=== PATIENT | female | born 1930 | race Caucasian/White ===

== ENCOUNTER 2018-03-21 16:37 | Emergency (ER) | payer MEDICARE, MEDICAID, OTHER ==
[2018-03-21 19:30] LABS: Urine Appearance Cloudy; Urine Blood Negative (Negative); Urine Color Yellow; Urine Ketones Negative (Negative); Urine Protein Negative (Negative); Urine Red Blood Cell Trace(0-2/hpf) (Absent); Urine Urobilinogen Negative (Negative); Urine White Blood Cell 2+(11-20/hpf) (Absent)
--- NOTE | 2018-03-21 19:33 | ED ---
Respiratory - HPI Summary HPI Summary: This patient is an 87 year old F presenting to [facility] with a chief complaint of cough since 2 days ago. The patient finished her last course of chemotherapy on 03/05. The patient rates the pain 0/10 in severity. Symptoms aggravated by nothing. Symptoms alleviated by nothing. Patient reports fatigue, decreased appetite, and body aches. Patient says her temperature typically runs low and she notes a fever. Patient denies abdominal pain, abnormal bowel movements, dysuria, rash, and pruritus. Patient has ovarian cancer and has PMHx of DVT in her right leg. The patient takes Enoxaparin. - History of Current Complaint Chief Complaint: EDGeneral Stated Complaint: COUGH/BODY ACHES Time Seen by Provider: 03/21/18 19:20 Hx Obtained From: Patient Onset/Duration: Gradual Onset, Lasting Days - 2 days, Still Present Timing: Intermittent Episodes Lasting: Current Severity: None Pain Intensity: 0 Character: Cough (Nonproductive) Aggravating Factor(s): Nothing Alleviating Factor(s): Nothing Associated Signs and Symptoms: Fever - Allergy/Home Medications Allergies/Adverse Reactions: Allergies Allergy/AdvReac Type Severity Reaction Status Date / Time exenatide AdvReac Mild Nausea And Verified 10/01/17 11:03 Vomiting liraglutide AdvReac Mild Nausea And Verified 10/01/17 11:03 Vomiting metformin AdvReac Mild Nausea And Verified 10/01/17 11:03 Vomiting sitagliptin AdvReac Mild Nausea And Verified 10/01/17 11:03 Vomiting PMH/Surg Hx/FS Hx/Imm Hx Endocrine/Hematology History: Reports: Hx Diabetes - NO MEDS, Hx Thyroid Disease - hypothy Denies: Hx Systemic Lupus Erythematosus Cardiovascular History: Reports: Hx Deep Vein Thrombosis, Hx Hypertension - WELL CONTROLLED Denies: Hx Pacemaker/ICD Respiratory History: Reports: Hx Pneumonia GI History: Reports: Hx Gastrointestinal Bleed - Admission Dx History: Reports: Hx Acute Renal Failure Denies: Hx Dialysis, Hx Renal Disease Musculoskeletal History: Reports: Hx Arthritis - top of left foot, HANDS, Hx Back Problems - pinched nerve r/t 5 ruptured discs in 06/04, healed, Hx Osteoporosis Denies: Hx Rheumatoid Arthritis Sensory History: Reports: Hx Cataracts, Hx 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 OVARIAN Date and Location of Last Treatment: Chemotherapy 03/05/18 Hx Chemotherapy: Yes - OVARIAN Hx Radiation Therapy: No - Surgical History Surgery Procedure, Year, and Place: L MASTECTOMY WITH LYMPH NODE DISSECTION 1978. APPENDECTOMY WITH LEFT OOPHERECTOMY 1945. HYSTERECTOMY 1964. BILAT CATARACTS 05/2015 [facility]. TONSILLECTOMY A CHILD. RIGHT OOPHERECTOMY 2014 [place]. [place] PLACEMENT Hx Anesthesia Reactions: No Infectious Disease History: No Infectious Disease History: Denies: Traveled Outside the [place] in Last 30 Days - Family History Known Family History: Positive: None - patient denies relevant FHx - Social History Alcohol Use: None Substance Use Type: Reports: None Smoking Status (MU): Never Smoked Tobacco Review of Systems Positive: Fever, Fatigue Negative: Epistaxis Positive: Cough Negative: Abdominal Pain Negative: dysuria Negative: Rash All Other Systems Reviewed And Are Negative: Yes Physical Exam - Summary Physical Exam Summary: Appearance: Well-appearing, Well-nourished, lying in bed comfortably Skin: Warm, dry, no obvious rash Eyes: sclera anicteric, no conjunctival pallor ENT: mucous membranes moist, pharynx appears normal Neck: Supple, nontender Respiratory: Clear to auscultation, no signs of respiratory distress Cardiovascular: Normal S1, S2. No murmurs. Normal distal pulses in tibial and radial bilaterally. Abdomen: Soft, nontender, normal active bowel sounds present Musculoskeletal: Normal, Strength/ROM Intact Neurological: A&Ox3, awake and alert, mentation is normal, speech is fluent and appropriate Psychiatric: affect is normal, does not appear anxious or depressed Triage Information Reviewed: Yes Vital Signs On Initial Exam: Initial Vitals Temp Pulse Resp BP Pulse Ox 99.0 F 90 18 128/55 97 03/21/18 16:49 03/21/18 16:49 03/21/18 16:49 03/21/18 16:49 03/21/18 16:49 Vital Signs Reviewed: Yes Diagnostics - Vital Signs Vital Signs Temp Pulse Resp BP Pulse Ox 03/21/18 16:49 99.0 F 90 18 128/55 97 - Laboratory Result Diagrams: 03/21/18 19:37 03/21/18 19:37 Lab Statement: Any lab studies that have been ordered have been reviewed, and results considered in the medical decision making process. - Radiology CXR Xray Interpretation: No Acute Changes - Impression: no acute disease Radiology Interpretation Completed By: ED Physician Disposition - Diagnoses Provider Diagnoses: UTI (urinary tract infection), Anemia Discharge - Sign-Out/Discharge Documenting (check all that apply): Patient Departure - Discharge Plan Condition: Good Disposition: HOME Prescriptions: cephALEXin [Keflex] 500 mg PO QID #28 capsule Patient Education Materials: Urinary Tract Infection in Women (ED) Referrals: Nancy Rodriguez MD [Primary Care Provider] - Additional Instructions: You are anemic, presumably from the chemotherapy, but not so much that you need a transfusion right now. However, this can make you fatigued. The only other finding on the tests was the urinalysis showed signs of a urinary tract infection, which in women your age can cause systemic symptoms such as fatigue and confusion. The antibiotic prescribed should take care of this, but if you are not better by the end of the weekend, or doing worse sooner, we should see you back here. - Billing Disposition and Condition Condition: GOOD Disposition: Home - Attestation Statements Document Initiated by Felipe: Yes Documenting Scribe: Bettye Johnson Provider For Whom Felipe is Documenting (Include Credential): Rolando Raza MD Scribe Attestation: Bettye Bruner, scribed for Rolando Raza MD on 03/22/18 at 0054. Scribe Documentation Reviewed: Yes Provider Attestation: The documentation as recorded by the sharifibe, Bettye Johnson accurately reflects the service I personally performed and the decisions made by me, Rolando Raza MD
[2018-03-21 19:56] LABS: Hematocrit 24 % (35-47); Hemoglobin 8.4 g/dl (12.0-16.0); Mean Corpuscular HGB Conc 35 g/dl (31-36); Mean Corpuscular Hemoglobin 38 pg (27-31); Mean Corpuscular Volume 107 fL (80-97); Mean Platelet Volume 6.9 um3 (7.4-10.4); Platelet Count 153 10^3/ul (150-450); Red Blood Count 2.23 10^6/ul (4.00-5.40); Red Cell Distribution Width 23 % (10.5-15); White Blood Count 3.1 10^3/ul (3.5-10.8)
[2018-03-21 20:13] LABS: EGFR Non-African American 30.9 (>60)
[2018-03-21] MEDS ORDERED: Cephalexin CAP* 500 MG PO ONE (20:33)
[2018-03-21 20:36] LABS: ABS Basophils 0 10^3/ul (0-0.2); ABS Eosinophils 0.1 10^3/ul (0-0.6); ABS Lymphocytes 0.2 10^3/ul (1.0-4.8); ABS Monocytes 0.3 10^3/ul (0-0.8); ABS Neutrophils 2.5 10^3/ul (1.5-7.7); ABS Nucleated RBC 0 10^3/ul; Eosinophil % 1.8 % (0-6); Lymphocyte % 6.2 % (25-47); Nucleated Red Blood Cells % 0
[2018-03-21 21:34] VITALS: BP 115/63
--- NOTE | 2018-03-22 09:11 | RAD ---
INDICATION: Cough for one week. Slight fever. Recent chemotherapy for ovarian carcinoma. COMPARISON: March 17, [address] April 30, [address] TECHNIQUE: Dual energy PA and routine lateral views of the chest were obtained. REPORT: Mild prominence of interstitial markings without significant interval change compared with the prior CT. No superimposed alveolar infiltrate, pleural effusion, or pneumothorax. Tip of RIGHT chest port at level of RIGHT atrium. Upper normal heart size. Unremarkable central pulmonary vasculature and mediastinal contours. Negative for free air beneath the diaphragm. IMPRESSION: #. Stigmata of probable chronic obstructive pulmonary disease. #. No acute cardiopulmonary process evident. R0
== END 2018-03-21 21:30 | disposition home or self-care (01) ==
LOC: ED 16:37
DX: N39.0 Urinary tract infection, site not specified (principal); D64.9 Anemia, unspecified; R05 Cough; E11.9 Type 2 diabetes mellitus without complications; R50.9 Fever, unspecified; R53.83 Other fatigue; I10 Essential (primary) hypertension; Z86.718 Personal history of other venous thrombosis and embolism
CPT/HCPCS: 36415; 71046; 80053; 81003; 81015; 83605; 85025; 87086; 99282; A9270-GY; J1642

== ENCOUNTER 2018-12-24 16:47 | Inpatient (IN) | payer MEDICARE, OTHER ==
[2018-12-24] MEDS ORDERED: Prochlorperazine TAB* 10 MG PO PRN (17:13)
[2018-12-24] MEDS ORDERED: Acetaminophen TAB* 325 MG PO PRN (17:13)
[2018-12-24] MEDS ORDERED: Ondansetron TAB* 4 MG PO PRN (17:13)
[2018-12-24] MEDS ORDERED: Heparin DRIP 25,000 UNITS(*) 25,000 UNITS/500 ML BAG IV SCH (17:15)
[2018-12-24] MEDS ORDERED: Warfarin TAB(*) 5 MG PO SCH (18:45)
[2018-12-24] MEDS: rOPINIRole TAB* 1 MG PO SCH ×2 (18:46→23:43)
[2018-12-24] MEDS: Magnesium Oxide TAB* 400 MG PO SCH (18:47)
[2018-12-24] MEDS: Pantoprazole TAB * 40 MG TAB PO SCH (18:47)
[2018-12-24] MEDS: Atorvastatin* 20 MG TAB PO SCH (18:50)
[2018-12-24] MEDS ORDERED: Heparin VIAL(*) 5000 UNITS/ML VIAL (FIVE THOUSAND) IV PRN (19:26)
[2018-12-24] MEDS: Cetirizine* 10 MG TAB PO SCH (21:06)
[2018-12-24 21:20] LABS: Hematocrit 27 % (35-47); Hemoglobin 9.2 g/dL (12.0-16.0); Mean Corpuscular HGB Conc 34 g/dL (31-36); Mean Corpuscular Hemoglobin 37 pg (27-31); Mean Corpuscular Volume 107 fL (80-97); Mean Platelet Volume 8.5 fL (7.4-10.4); Platelet Count 171 10^3/uL (150-450); Red Blood Count 2.53 10^6 /uL (3.70-4.87); Red Cell Distribution Width 21 % (10.5-15); White Blood Count 3.6 10^3/uL (3.5-10.8)
[2018-12-24] MEDS: Heparin DRIP 25,000 UNITS(*) 25,000 UNITS/500 ML BAG IV SCH (21:20)
[2018-12-24 21:34] LABS: EGFR African American 46.2 (>60); EGFR Non-African American 38.2 (>60)
[2018-12-24 21:46] LABS: ABS Lymphocytes 0.1 10^3/ul (1.0-4.8); ABS Monocytes 0.2 10^3/ul (0-0.8); ABS Neutrophils 3.3 10^3/ul (1.5-7.7); Lymphocyte % 3.1 %
[2018-12-25] MEDS: Levothyroxine TAB* 88 MCG TAB PO SCH (05:15)
[2018-12-25 05:35] LABS: ABS Lymphocytes 0.2 10^3/ul (1.0-4.8); ABS Monocytes 0.5 10^3/ul (0-0.8); Eosinophil % 0.4 %; Hematocrit 24 % (35-47); Hemoglobin 8.1 g/dL (12.0-16.0); Lymphocyte % 4.9 %; Mean Corpuscular HGB Conc 34 g/dL (31-36); Mean Corpuscular Hemoglobin 37 pg (27-31); Mean Corpuscular Volume 107 fL (80-97); Mean Platelet Volume 8.1 fL (7.4-10.4); Nucleated Red Blood Cells % 0.1; Platelet Count 140 10^3/uL (150-450); Red Blood Count 2.21 10^6 /uL (3.70-4.87); Red Cell Distribution Width 20 % (10.5-15); White Blood Count 3.8 10^3/uL (3.5-10.8)
[2018-12-25 05:57] LABS: Albumin 3.2 g/dL (3.2-5.2); Albumin/Globulin Ratio 1.4 (1-3); BUN/Creatinine Ratio 19.8 (8-20); Calcium 8.9 mg/dL (8.6-10.3); EGFR African American 46.6 (>60); EGFR Non-African American 38.5 (>60); Globulin 2.3 g/dL (2-4); Potassium 4.8 mmol/L (3.5-5.0); Total Bilirubin 0.4 mg/dL (0.2-1.0); Total Protein 5.5 g/dL (6.4-8.9)
--- NOTE | 2018-12-25 09:14 | PN ---
Progress Note - Progress Note Date of Service: 12/25/18 SOAP: Subjective: leg feels better but has been resting more/elevating so less swollen. still runner around the ankle. slept very well last night. no nausea/vomiting after chemo yesterday. Objective: Vital Signs Temp Pulse Resp BP Pulse Ox 98.4 F 70 20 112/36 95 12/25/18 03:29 12/25/18 03:29 12/25/18 03:29 12/25/18 03:29 12/25/18 03:29 sitting up in nad perr eomi op moist CTA bl s1 s2 nl soft nt +Bs 1+ LE edema RLE, minimal erythema, no warmth A+O x 3, nonfocal neurological exam Laboratory Results - last 24 hr 12/24/18 12/24/18 12/24/18 16:57 20:51 20:51 WBC 3.6 RBC 2.53 L Hgb 9.2 L Hct 27 L MCV 107 H MCH 37 H MCHC 34 RDW 21 H Plt Count 171 MPV 8.5 Neut % (Auto) 90.7 Lymph % (Auto) 3.1 [place] % (Auto) 6.1 Eos % (Auto) 0.0 Baso % (Auto) 0.1 Absolute Neuts (auto) 3.3 Absolute Lymphs (auto) 0.1 L Absolute Monos (auto) 0.2 Absolute Eos (auto) 0.0 Absolute Basos (auto) 0.0 Absolute Nucleated RBC 0.0 Nucleated RBC % 0.0 APTT 39.8 H Sodium Potassium Chloride Carbon Dioxide Anion Gap BUN 26 H Creatinine 1.32 H Est GFR ( Amer) 46.2 Est GFR (Non-Af Amer) 38.2 BUN/Creatinine Ratio Glucose Calcium Total Bilirubin AST ALT Alkaline Phosphatase Total Protein Albumin Globulin Albumin/Globulin Ratio 12/25/18 12/25/18 12/25/18 03:30 05:19 05:19 WBC 3.8 RBC 2.21 L Hgb 8.1 L Hct 24 L MCV 107 H MCH 37 H MCHC 34 RDW 20 H Plt Count 140 L MPV 8.1 Neut % (Auto) 81.2 Lymph % (Auto) 4.9 [place] % (Auto) 13.2 Eos % (Auto) 0.4 Baso % (Auto) 0.3 Absolute Neuts (auto) 3.0 Absolute Lymphs (auto) 0.2 L Absolute Monos (auto) 0.5 Absolute Eos (auto) 0.0 Absolute Basos (auto) 0.0 Absolute Nucleated RBC 0.0 Nucleated RBC % 0.1 APTT > 212.0 H* Sodium 134 L Potassium 4.8 Chloride 103 Carbon Dioxide 24 Anion Gap 7 BUN 26 H Creatinine 1.31 H Est GFR ( Amer) 46.6 Est GFR (Non-Af Amer) 38.5 BUN/Creatinine Ratio 19.8 Glucose 157 H Calcium 8.9 Total Bilirubin 0.40 AST 15 ALT 23 Alkaline Phosphatase 61 Total Protein 5.5 L Albumin 3.2 Globulin 2.3 Albumin/Globulin Ratio 1.4 12/25/18 12/25/18 05:19 06:01 WBC RBC Hgb Hct MCV MCH MCHC RDW Plt Count MPV Neut % (Auto) Lymph % (Auto) [place] % (Auto) Eos % (Auto) Baso % (Auto) Absolute Neuts (auto) Absolute Lymphs (auto) Absolute Monos (auto) Absolute Eos (auto) Absolute Basos (auto) Absolute Nucleated RBC Nucleated RBC % APTT > 211.0 H* 142.8 H* Sodium Potassium Chloride Carbon Dioxide Anion Gap BUN Creatinine Est GFR ( Amer) Est GFR (Non-Af Amer) BUN/Creatinine Ratio Glucose Calcium Total Bilirubin AST ALT Alkaline Phosphatase Total Protein Albumin Globulin Albumin/Globulin Ratio Acetaminophen (Tylenol Tab*) 650 mg PO Q4H PRN PRN Reason: FEVER/PAIN Atorvastatin Calcium (Lipitor*) 20 mg PO QPM [facility] Last Admin: 12/24/18 18:50 Dose: 20 mg Cetirizine HCl (Zyrtec*) 10 mg PO BEDTIME [facility]; Protocol Last Admin: 12/24/18 21:06 Dose: 10 mg Heparin Sodium (Porcine) (Heparin Vial(*)) 0 units IV .FOR BOLUSES PRN PRN Reason: HEPARIN DRIP BOLUSES Last Admin: 12/24/18 21:20 Dose: 4,275 units Heparin Sodium/Dextrose (Heparin Drip 25,000 Units(*)) 25,000 units in 500 mls @ 0 mls/hr IV PER RATE [facility]; Protocol Last Admin: 12/24/18 21:20 Dose: 21 mls/hr Levothyroxine Sodium (Synthroid Tab*) 88 mcg PO DAILY@0600 [facility] Last Admin: 12/25/18 05:15 Dose: 88 mcg Lisinopril (Prinivil Tab*) 20 mg PO DAILY [facility] Magnesium Oxide (Magox 400 Tab*) 400 mg PO QPM [facility] Last Admin: 12/24/18 18:47 Dose: 400 mg Multivitamins/Minerals (Theragran/Minerals Tab*) 1 tab PO DAILY [facility] Ondansetron HCl (Zofran Tab*) 4 mg PO Q6H PRN PRN Reason: NAUSEA Pantoprazole Sodium (Protonix Tab*) 40 mg PO QPM [facility] Last Admin: 12/24/18 18:47 Dose: 40 mg Prochlorperazine (Compazine Tab*) 10 mg PO Q6H PRN PRN Reason: NAUSEA Ropinirole HCl (Requip Tab*) 3 mg PO 0000,1800 [facility] Last Admin: 12/24/18 23:43 Dose: 3 mg Warfarin Sodium (Coumadin Tab(*)) 3 mg PO DAILY@1700 [facility]; Protocol Assessment: 88 yo F on palliative carbo/gemcitabine for 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 Plan: -cont heparin drip -coumadin bridge, given age will decrease dose to 3 mg daily, will need at least 5 dys heparin AND therapeutic INR -check INR on Saturday (day 4) -coumadin teaching cont home meds
[2018-12-25] MEDS: Lisinopril TAB* 10 MG PO SCH (10:38)
[2018-12-25] MEDS: Multivitamins/Minerals TAB PO SCH (10:38)
[2018-12-25] MEDS: rOPINIRole TAB* 1 MG PO SCH ×2 (17:27→23:44)
[2018-12-25] MEDS: Magnesium Oxide TAB* 400 MG PO SCH (17:27)
[2018-12-25] MEDS: Atorvastatin* 20 MG TAB PO SCH (17:27)
[2018-12-25] MEDS: Pantoprazole TAB * 40 MG TAB PO SCH (17:27)
[2018-12-25] MEDS: Warfarin TAB(*) 3 MG PO SCH (17:27)
[2018-12-25] MEDS: Cetirizine* 10 MG TAB PO SCH (20:24)
[2018-12-26] MEDS: Levothyroxine TAB* 88 MCG TAB PO SCH (05:35)
[2018-12-26] MEDS: Heparin DRIP 25,000 UNITS(*) 25,000 UNITS/500 ML BAG IV SCH (05:39)
[2018-12-26 08:22] LABS: Activated Partial Thrombo Time 58.9 seconds (26.0-38.0)
[2018-12-26 08:26] LABS: EGFR African American 46.6 (>60); EGFR Non-African American 38.5 (>60)
--- NOTE | 2018-12-26 10:07 | PN ---
Progress Note - Progress Note Date of Service: 12/26/18 SOAP: Subjective: [Doing well. No new complaints.] Objective: [ Laboratory Results - last 24 hr 12/25/18 12/25/18 12/26/18 10:02 19:00 01:45 APTT 108.5 H* 83.4 H 68.0 H BUN Creatinine Est GFR ( Amer) Est GFR (Non-Af Amer) 12/26/18 12/26/18 07:28 07:33 APTT 58.9 H BUN 28 H Creatinine 1.31 H Est GFR ( Amer) 46.6 Est GFR (Non-Af Amer) 38.5 Acetaminophen (Tylenol Tab*) 650 mg PO Q4H PRN PRN Reason: FEVER/PAIN Atorvastatin Calcium (Lipitor*) 20 mg PO QPM [facility] Last Admin: 12/25/18 17:27 Dose: 20 mg Cetirizine HCl (Zyrtec*) 10 mg PO BEDTIME [facility]; Protocol Last Admin: 12/25/18 20:24 Dose: 10 mg Heparin Sodium (Porcine) (Heparin Vial(*)) 0 units IV .FOR BOLUSES PRN PRN Reason: HEPARIN DRIP BOLUSES Last Admin: 12/24/18 21:20 Dose: 4,275 units Heparin Sodium/Dextrose (Heparin Drip 25,000 Units(*)) 25,000 units in 500 mls @ 0 mls/hr IV PER RATE [facility]; Protocol Last Admin: 12/26/18 05:39 Dose: 13 mls/hr Levothyroxine Sodium (Synthroid Tab*) 88 mcg PO DAILY@0600 [facility] Last Admin: 12/26/18 05:35 Dose: 88 mcg Lisinopril (Prinivil Tab*) 20 mg PO DAILY [facility] Last Admin: 12/25/18 10:38 Dose: 20 mg Magnesium Oxide (Magox 400 Tab*) 400 mg PO QPM [facility] Last Admin: 12/25/18 17:27 Dose: 400 mg Multivitamins/Minerals (Theragran/Minerals Tab*) 1 tab PO DAILY [facility] Last Admin: 12/25/18 10:38 Dose: 1 tab Ondansetron HCl (Zofran Tab*) 4 mg PO Q6H PRN PRN Reason: NAUSEA Pantoprazole Sodium (Protonix Tab*) 40 mg PO QPM [facility] Last Admin: 12/25/18 17:27 Dose: 40 mg Prochlorperazine (Compazine Tab*) 10 mg PO Q6H PRN PRN Reason: NAUSEA Ropinirole HCl (Requip Tab*) 3 mg PO 0000,1800 [facility] Last Admin: 12/25/18 23:44 Dose: 3 mg Warfarin Sodium (Coumadin Tab(*)) 3 mg PO DAILY@1700 [facility]; Protocol Last Admin: 12/25/18 17:27 Dose: 3 mg Vital Signs: Temp Pulse Resp BP Pulse Ox 97.7 F 74 20 108/35 94 12/26/18 03:23 12/26/18 03:23 12/26/18 03:23 12/26/18 03:23 12/26/18 03:23 Exam: Gen: Well appearing 88 yo female in NAD HEENT: MMM CV: RRR, no m/r/g Resp: CTA, no w/c/r Abd: soft, nonTTP Ext: trace RLE with TTP over the calf Skin: no rashes] [Assessment: 88 yo F on palliative carbo/gemcitabine for recurrent ovarian cancer (C3dy3) with a history of recurrent DVT/PE, previously failed eliquis now with progression of clot on lovenox 100 mg daily necessitating admission for IV heparin transitioning to coumadin (no arixtra given creatinine clearance <30). Plan: -cont heparin drip -coumadin bridge, 3 mg daily, will need at least 5 dys heparin AND therapeutic INR -check INR daily -coumadin teaching Dispo: cont heparin drip, dc home when above criteria met
[2018-12-26] MEDS: Multivitamins/Minerals TAB PO SCH (10:12)
[2018-12-26] MEDS ORDERED: Polyethylene Glycol 3350* 17 GM PACKET PO ONE (10:18)
[2018-12-26] MEDS: Lisinopril TAB* 10 MG PO SCH (10:30)
[2018-12-26] MEDS: Docusate CAP* 100 MG PO SCH ×2 (10:35→19:13)
[2018-12-26 11:25] LABS: INR 1.02 (0.82-1.09)
[2018-12-26] MEDS: Warfarin TAB(*) 3 MG PO SCH (17:27)
[2018-12-26] MEDS: Pantoprazole TAB * 40 MG TAB PO SCH (17:29)
[2018-12-26] MEDS: Magnesium Oxide TAB* 400 MG PO SCH (17:29)
[2018-12-26] MEDS: rOPINIRole TAB* 1 MG PO SCH ×2 (17:29→23:35)
[2018-12-26] MEDS: Atorvastatin* 20 MG TAB PO SCH (17:29)
[2018-12-26] MEDS: Cetirizine* 10 MG TAB PO SCH (19:13)
[2018-12-26] MEDS: Senna TAB PO SCH (19:14)
[2018-12-27 06:03] LABS: INR 1.03 (0.82-1.09)
[2018-12-27] MEDS: Levothyroxine TAB* 88 MCG TAB PO SCH (06:04)
[2018-12-27 06:18] LABS: Hematocrit 25 % (35-47); Hemoglobin 8.5 g/dL (12.0-16.0); Mean Corpuscular HGB Conc 35 g/dL (31-36); Mean Corpuscular Hemoglobin 38 pg (27-31); Mean Corpuscular Volume 108 fL (80-97); Mean Platelet Volume 8.2 fL (7.4-10.4); Platelet Count 148 10^3/uL (150-450); Red Blood Count 2.27 10^6 /uL (3.70-4.87); Red Cell Distribution Width 20 % (10-15); White Blood Count 1.6 10^3/uL (3.5-10.8)
[2018-12-27 07:27] LABS: ABS Eosinophils 0.1 10^3/ul (0-0.6); ABS Lymphocytes 0.2 10^3/ul (1.0-4.8); ABS Monocytes 0.1 10^3/ul (0-0.8); ABS Neutrophils 1.1 10^3/ul (1.5-7.7); Eosinophil % 4.6 %; Lymphocyte % 15.4 %
[2018-12-27] MEDS: Docusate CAP* 100 MG PO SCH ×2 (07:44→19:09)
[2018-12-27] MEDS: Multivitamins/Minerals TAB PO SCH (07:45)
[2018-12-27] MEDS: Lisinopril TAB* 10 MG PO SCH (07:45)
--- NOTE | 2018-12-27 13:29 | PN ---
Progress Note - Progress Note Date of Service: 12/27/18 SOAP: Subjective: []Doing fine, no change. She was up and walking yesterday. Leg is a little better. No SOB or chest pain. Acetaminophen (Tylenol Tab*) 650 mg PO Q4H PRN PRN Reason: FEVER/PAIN Atorvastatin Calcium (Lipitor*) 20 mg PO QPM [facility] Last Admin: 12/26/18 17:29 Dose: 20 mg Cetirizine HCl (Zyrtec*) 10 mg PO BEDTIME [facility]; Protocol Last Admin: 12/26/18 19:13 Dose: 10 mg Docusate Sodium (Colace Cap*) 100 mg PO BID [facility] Last Admin: 12/27/18 07:44 Dose: 100 mg Heparin Sodium (Porcine) (Heparin Vial(*)) 0 units IV .FOR BOLUSES PRN PRN Reason: HEPARIN DRIP BOLUSES Last Admin: 12/24/18 21:20 Dose: 4,275 units Heparin Sodium/Dextrose (Heparin Drip 25,000 Units(*)) 25,000 units in 500 mls @ 0 mls/hr IV PER RATE [facility]; Protocol Last Admin: 12/26/18 05:39 Dose: 13 mls/hr Levothyroxine Sodium (Synthroid Tab*) 88 mcg PO DAILY@0600 [facility] Last Admin: 12/27/18 06:04 Dose: 88 mcg Lisinopril (Prinivil Tab*) 20 mg PO DAILY [facility] Last Admin: 12/27/18 07:45 Dose: Not Given Magnesium Oxide (Magox 400 Tab*) 400 mg PO QPM [facility] Last Admin: 12/26/18 17:29 Dose: 400 mg Multivitamins/Minerals (Theragran/Minerals Tab*) 1 tab PO DAILY [facility] Last Admin: 12/27/18 07:45 Dose: 1 tab Ondansetron HCl (Zofran Tab*) 4 mg PO Q6H PRN PRN Reason: NAUSEA Pantoprazole Sodium (Protonix Tab*) 40 mg PO QPM [facility] Last Admin: 12/26/18 17:29 Dose: 40 mg Prochlorperazine (Compazine Tab*) 10 mg PO Q6H PRN PRN Reason: NAUSEA Ropinirole HCl (Requip Tab*) 3 mg PO 0000,1800 [facility] Last Admin: 12/26/18 23:35 Dose: 3 mg Senna (Senokot Tab*) 1 tab PO BEDTIME [facility] Last Admin: 12/26/18 19:14 Dose: Not Given Warfarin Sodium (Coumadin Tab(*)) 3 mg PO DAILY@1700 [facility]; Protocol Last Admin: 12/26/18 17:27 Dose: 3 mg Objective: [] Vital Signs Temp Pulse Resp BP Pulse Ox 98.3 F 65 16 125/49 100 12/27/18 11:00 12/27/18 11:00 12/27/18 11:00 12/27/18 11:00 12/27/18 11:00 Gen: Well appearing 88 yo female in NAD HEENT: MMM CV: RRR, no m/r/g Resp: CTA, no w/c/r Abd: soft, nonTTP Ext: trace RLE but skin changes to sagest reduced fluid Skin: no rashes] [Assessment: 88 yo F on palliative carbo/gemcitabine for recurrent ovarian cancer (C3dy3) with a history of recurrent DVT/PE, previously failed eliquis now with progression of clot on lovenox 100 mg daily necessitating admission for IV heparin transitioning to coumadin (no arixtra given creatinine clearance <30). Plan: -cont heparin drip -coumadin bridge, 5 mg daily x 2 days, will need at least 5 dys heparin AND therapeutic INR -check INR daily -coumadin teaching - Instructed patient I expect she will need to be in hospital for 4-5 more days at least
[2018-12-27] MEDS: Pantoprazole TAB * 40 MG TAB PO SCH (17:30)
[2018-12-27] MEDS: Warfarin TAB(*) 5 MG PO SCH (17:30)
[2018-12-27] MEDS: rOPINIRole TAB* 1 MG PO SCH (17:30)
[2018-12-27] MEDS: Atorvastatin* 20 MG TAB PO SCH (17:30)
[2018-12-27] MEDS: Magnesium Oxide TAB* 400 MG PO SCH (17:30)
[2018-12-27] MEDS: Senna TAB PO SCH (19:10)
[2018-12-27] MEDS: Heparin DRIP 25,000 UNITS(*) 25,000 UNITS/500 ML BAG IV SCH (21:10)
[2018-12-27] MEDS: Cetirizine* 10 MG TAB PO SCH (21:14)
[2018-12-28] MEDS: rOPINIRole TAB* 1 MG PO SCH ×3 (00:06→23:36)
[2018-12-28] MEDS: Levothyroxine TAB* 88 MCG TAB PO SCH (05:59)
[2018-12-28 06:58] LABS: INR 1.05 (0.82-1.09)
[2018-12-28 07:04] LABS: Hematocrit 23 % (35-47); Hemoglobin 7.9 g/dL (12.0-16.0); Mean Corpuscular HGB Conc 35 g/dL (31-36); Mean Corpuscular Hemoglobin 37 pg (27-31); Mean Corpuscular Volume 107 fL (80-97); Mean Platelet Volume 7.8 fL (7.4-10.4); Platelet Count 137 10^3/uL (150-450); Red Blood Count 2.15 10^6 /uL (3.70-4.87); Red Cell Distribution Width 19 % (10-15); White Blood Count 1.2 10^3/uL (3.5-10.8)
[2018-12-28 07:08] LABS: EGFR African American 53.1 (>60); EGFR Non-African American 43.9 (>60)
[2018-12-28] MEDS: Lisinopril TAB* 10 MG PO SCH (09:27)
[2018-12-28] MEDS: Multivitamins/Minerals TAB PO SCH (09:28)
[2018-12-28] MEDS: Docusate CAP* 100 MG PO SCH ×2 (09:28→20:51)
--- NOTE | 2018-12-28 09:53 | PN ---
Subjective Date of Service: 12/28/18 Interval History: Covering for the oncology service. She is requesting miralax, last BM 1 day ago, passing gas, no abdominal pain No chest pain, no palpitations, no shortness of breath Objective Active Medications: Acetaminophen (Tylenol Tab*) 650 mg PO Q4H PRN PRN Reason: FEVER/PAIN Atorvastatin Calcium (Lipitor*) 20 mg PO QPM [facility] Last Admin: 12/27/18 17:30 Dose: 20 mg Cetirizine HCl (Zyrtec*) 10 mg PO BEDTIME [facility]; Protocol Last Admin: 12/27/18 21:14 Dose: 10 mg Docusate Sodium (Colace Cap*) 100 mg PO BID [facility] Last Admin: 12/28/18 09:28 Dose: 100 mg Heparin Sodium (Porcine) (Heparin Vial(*)) 0 units IV .FOR BOLUSES PRN PRN Reason: HEPARIN DRIP BOLUSES Last Admin: 12/24/18 21:20 Dose: 4,275 units Heparin Sodium/Dextrose (Heparin Drip 25,000 Units(*)) 25,000 units in 500 mls @ 0 mls/hr IV PER RATE [facility]; Protocol Last Admin: 12/27/18 21:10 Dose: 13 mls/hr Levothyroxine Sodium (Synthroid Tab*) 88 mcg PO DAILY@0600 [facility] Last Admin: 12/28/18 05:59 Dose: 88 mcg Lisinopril (Prinivil Tab*) 20 mg PO DAILY [facility] Last Admin: 12/28/18 09:27 Dose: 20 mg Magnesium Oxide (Magox 400 Tab*) 400 mg PO QPM [facility] Last Admin: 12/27/18 17:30 Dose: 400 mg Multivitamins/Minerals (Theragran/Minerals Tab*) 1 tab PO DAILY [facility] Last Admin: 12/28/18 09:28 Dose: 1 tab Ondansetron HCl (Zofran Tab*) 4 mg PO Q6H PRN PRN Reason: NAUSEA Pantoprazole Sodium (Protonix Tab*) 40 mg PO QPM [facility] Last Admin: 12/27/18 17:30 Dose: 40 mg Polyethylene Glycol/Electrolytes (Miralax*) 17 gm PO DAILY PRN PRN Reason: CONSTIPATION Prochlorperazine (Compazine Tab*) 10 mg PO Q6H PRN PRN Reason: NAUSEA Ropinirole HCl (Requip Tab*) 3 mg PO 0000,1800 [facility] Last Admin: 12/28/18 00:06 Dose: 3 mg Senna (Senokot Tab*) 1 tab PO BEDTIME [facility] Last Admin: 12/27/18 19:10 Dose: Not Given Warfarin Sodium (Coumadin Tab(*)) 5 mg PO DAILY@1700 [facility]; Protocol Stop: 12/29/18 16:59 Last Admin: 12/27/18 17:30 Dose: 5 mg Vital Signs - 8 hr 12/28/18 03:00 Temperature 98.4 F Pulse Rate 79 Respiratory 20 Rate Blood Pressure 139/50 (mmHg) O2 Sat by Pulse 94 Oximetry Oxygen Devices in Use Now: None Appearance: elderly female, sitting on chair, not in distress Eyes: PERRLA Ears/Nose/Mouth/Throat: Mucous Membranes Moist Respiratory: Clear to Auscultation Cardiovascular: NL Sounds; No Murmurs; No JVD, RRR Extremities: - - trace right lower extremity edema Neurological: Alert and Oriented x 3 Result Diagrams: 12/28/18 06:14 12/28/18 06:14 Assess/Plan/Problems-Billing Assessment: 88 year old Female with ovarian cancer, here with right leg DVT with history of recurrent DVT/PE with failed eliqius. - Patient Problems (1) Right leg DVT Current Visit: Yes Status: Acute Code(s): I82.401 - ACUTE EMBOLISM AND THOMBOS UNSP DEEP VEINS OF R LOW EXTREM SNOMED Code(s): 466950943 Comment: Recurrent DVT/PE Failed eliquis was on lovenox, now on Heparin bridge to coumadin.
[2018-12-28] MEDS: Polyethylene Glycol 3350* 17 GM PACKET PO PRN (11:50)
[2018-12-28] MEDS: Pantoprazole TAB * 40 MG TAB PO SCH (17:36)
[2018-12-28] MEDS: Magnesium Oxide TAB* 400 MG PO SCH (17:37)
[2018-12-28] MEDS: Atorvastatin* 20 MG TAB PO SCH (17:37)
[2018-12-28] MEDS: Warfarin TAB(*) 5 MG PO SCH (17:37)
[2018-12-28] MEDS: Senna TAB PO SCH (20:51)
[2018-12-28] MEDS: Cetirizine* 10 MG TAB PO SCH (20:54)
[2018-12-29] MEDS: Levothyroxine TAB* 88 MCG TAB PO SCH (06:02)
[2018-12-29 06:28] LABS: INR 1.06 (0.82-1.09)
[2018-12-29] MEDS: Polyethylene Glycol 3350* 17 GM PACKET PO PRN (10:06)
[2018-12-29] MEDS: Lisinopril TAB* 10 MG PO SCH (10:06)
[2018-12-29] MEDS: Docusate CAP* 100 MG PO SCH ×2 (10:06→21:52)
[2018-12-29] MEDS: Multivitamins/Minerals TAB PO SCH (10:07)
--- NOTE | 2018-12-29 12:42 | PN ---
Progress Note - Progress Note Date of Service: 12/29/18 SOAP: Subjective: []Has been getting up and moving. Right leg seems less swollen. Still a little tender. No other complaints. Medications: Acetaminophen (Tylenol Tab*) 650 mg PO Q4H PRN PRN Reason: FEVER/PAIN Atorvastatin Calcium (Lipitor*) 20 mg PO QPM [facility] Last Admin: 12/28/18 17:37 Dose: 20 mg Cetirizine HCl (Zyrtec*) 10 mg PO BEDTIME [facility]; Protocol Last Admin: 12/28/18 20:54 Dose: 10 mg Docusate Sodium (Colace Cap*) 100 mg PO BID [facility] Last Admin: 12/29/18 10:06 Dose: 100 mg Heparin Sodium (Porcine) (Heparin Vial(*)) 0 units IV .FOR BOLUSES PRN PRN Reason: HEPARIN DRIP BOLUSES Last Admin: 12/24/18 21:20 Dose: 4,275 units Heparin Sodium/Dextrose (Heparin Drip 25,000 Units(*)) 25,000 units in 500 mls @ 0 mls/hr IV PER RATE [facility]; Protocol Last Admin: 12/27/18 21:10 Dose: 13 mls/hr Levothyroxine Sodium (Synthroid Tab*) 88 mcg PO DAILY@0600 [facility] Last Admin: 12/29/18 06:02 Dose: 88 mcg Lisinopril (Prinivil Tab*) 20 mg PO DAILY [facility] Last Admin: 12/29/18 10:06 Dose: 20 mg Magnesium Oxide (Magox 400 Tab*) 400 mg PO QPM [facility] Last Admin: 12/28/18 17:37 Dose: 400 mg Multivitamins/Minerals (Theragran/Minerals Tab*) 1 tab PO DAILY [facility] Last Admin: 12/29/18 10:07 Dose: 1 tab Ondansetron HCl (Zofran Tab*) 4 mg PO Q6H PRN PRN Reason: NAUSEA Pantoprazole Sodium (Protonix Tab*) 40 mg PO QPM [facility] Last Admin: 12/28/18 17:36 Dose: 40 mg Pharmacy Profile Note (Coumadin Daily Reminder*) 0 note FOLLOW UP 1700 [facility] Polyethylene Glycol/Electrolytes (Miralax*) 17 gm PO DAILY PRN PRN Reason: CONSTIPATION Last Admin: 12/29/18 10:06 Dose: 17 gm Prochlorperazine (Compazine Tab*) 10 mg PO Q6H PRN PRN Reason: NAUSEA Ropinirole HCl (Requip Tab*) 3 mg PO 0000,1800 [facility] Last Admin: 12/28/18 23:36 Dose: 3 mg Senna (Senokot Tab*) 1 tab PO BEDTIME [facility] Last Admin: 12/28/18 20:51 Dose: Not Given Warfarin Sodium (Coumadin Tab(*)) 5 mg PO DAILY@1700 [facility]; Protocol Stop: 12/31/18 16:59 Warfarin Sodium (Coumadin Tab(*)) 2 mg PO DAILY@1700 [facility] Stop: 12/30/18 17:01 Objective: [] Vital Signs Temp Pulse Resp BP Pulse Ox 97.9 F 76 19 132/63 98 12/29/18 08:02 12/29/18 08:02 12/29/18 08:02 12/29/18 08:02 12/29/18 08:02 A&Ox3, EOMI, neuro grossly non-focal HRR, S1S2 LS clear, resp. even and non-labored +PP=bilat., +1 Right edema to ankle, slight tenderness to the medial aspect of the calf Laboratory Results - last 24 hr 12/28/18 12/29/18 13:31 05:58 INR (Anticoag Therapy) 1.06 APTT 57.3 H Assessment: []88 yo F on palliative carbo/gemcitabine for recurrent ovarian cancer (s/p 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 Plan: []-cont heparin drip -coumadin bridge, increase to 7 mg, will need at least 5 dys heparin AND therapeutic INR -check INR daily -apply heat to right leg PRN Dispo: cont heparin drip, dc home when above criteria met
[2018-12-29] MEDS: Heparin DRIP 25,000 UNITS(*) 25,000 UNITS/500 ML BAG IV SCH (14:18)
[2018-12-29] MEDS: Atorvastatin* 20 MG TAB PO SCH (17:34)
[2018-12-29] MEDS: Magnesium Oxide TAB* 400 MG PO SCH (17:35)
[2018-12-29] MEDS: Warfarin TAB(*) 2 MG PO SCH (17:35)
[2018-12-29] MEDS: Pantoprazole TAB * 40 MG TAB PO SCH (17:35)
[2018-12-29] MEDS: Warfarin TAB(*) 5 MG PO SCH (17:35)
[2018-12-29] MEDS: rOPINIRole TAB* 1 MG PO SCH ×2 (17:37→23:58)
[2018-12-29] MEDS: Senna TAB PO SCH (21:52)
[2018-12-29] MEDS: Cetirizine* 10 MG TAB PO SCH (21:52)
[2018-12-30] MEDS: Levothyroxine TAB* 88 MCG TAB PO SCH (05:31)
[2018-12-30 06:27] LABS: EGFR African American 46.2 (>60); EGFR Non-African American 38.2 (>60)
[2018-12-30] MEDS: Docusate CAP* 100 MG PO SCH ×2 (08:53→20:05)
[2018-12-30] MEDS: Lisinopril TAB* 10 MG PO SCH (08:53)
[2018-12-30] MEDS: Multivitamins/Minerals TAB PO SCH (08:54)
[2018-12-30] MEDS: Warfarin TAB(*) 5 MG PO SCH (16:34)
[2018-12-30] MEDS: Warfarin TAB(*) 2 MG PO SCH (16:34)
[2018-12-30] MEDS: Atorvastatin* 20 MG TAB PO SCH (16:34)
[2018-12-30] MEDS: Magnesium Oxide TAB* 400 MG PO SCH (16:35)
[2018-12-30] MEDS: Pantoprazole TAB * 40 MG TAB PO SCH (16:35)
[2018-12-30] MEDS: rOPINIRole TAB* 1 MG PO SCH ×2 (16:37→23:56)
[2018-12-30] MEDS: Senna TAB PO SCH (20:05)
[2018-12-30] MEDS: Cetirizine* 10 MG TAB PO SCH (20:05)
[2018-12-31] MEDS: Heparin DRIP 25,000 UNITS(*) 25,000 UNITS/500 ML BAG IV SCH (03:05)
[2018-12-31 05:49] LABS: INR 1.21 (0.82-1.09)
[2018-12-31 05:50] LABS: Hematocrit 24 % (35-47); Hemoglobin 8.2 g/dL (12.0-16.0); Mean Corpuscular HGB Conc 35 g/dL (31-36); Mean Corpuscular Hemoglobin 37 pg (27-31); Mean Corpuscular Volume 107 fL (80-97); Mean Platelet Volume 7.9 fL (7.4-10.4); Platelet Count 117 10^3/uL (150-450); Red Blood Count 2.21 10^6 /uL (3.70-4.87); Red Cell Distribution Width 20 % (10-15); White Blood Count 0.7 10^3/uL (3.5-10.8)
[2018-12-31] MEDS: Levothyroxine TAB* 88 MCG TAB PO SCH (06:03)
[2018-12-31 06:54] LABS: ABS Lymphocytes 0.4 10^3/ul (1.0-4.8); ABS Monocytes 0.1 10^3/ul (0-0.8); ABS Neutrophils 0.2 10^3/ul (1.5-7.7); Eosinophil % 1.6 %; Lymphocyte % 59.1 %; Nucleated Red Blood Cells % 0.1
[2018-12-31] MEDS: Lisinopril TAB* 10 MG PO SCH (08:59)
[2018-12-31] MEDS: Docusate CAP* 100 MG PO SCH ×2 (08:59→20:57)
[2018-12-31] MEDS: Multivitamins/Minerals TAB PO SCH (08:59)
[2018-12-31] MEDS: Atorvastatin* 20 MG TAB PO SCH (17:29)
[2018-12-31] MEDS: Magnesium Oxide TAB* 400 MG PO SCH (17:29)
[2018-12-31] MEDS: Warfarin TAB(*) 5 MG PO SCH (17:29)
[2018-12-31] MEDS: Pantoprazole TAB * 40 MG TAB PO SCH (17:29)
[2018-12-31] MEDS: Warfarin TAB(*) 4 MG PO SCH (17:29)
[2018-12-31] MEDS: rOPINIRole TAB* 1 MG PO SCH ×2 (17:31→23:43)
[2018-12-31] MEDS: Senna TAB PO SCH (20:57)
[2018-12-31] MEDS: Cetirizine* 10 MG TAB PO SCH (20:57)
[2019-01-01 06:01] LABS: INR 1.3 (0.82-1.09)
[2019-01-01] MEDS: Levothyroxine TAB* 88 MCG TAB PO SCH (06:15)
[2019-01-01] MEDS: Docusate CAP* 100 MG PO SCH ×2 (08:07→21:01)
[2019-01-01] MEDS: Multivitamins/Minerals TAB PO SCH (08:07)
[2019-01-01] MEDS: Lisinopril TAB* 10 MG PO SCH (08:07)
[2019-01-01] MEDS: Acetaminophen TAB* 325 MG PO PRN (08:09)
--- NOTE | 2019-01-01 11:23 | PN ---
Progress Note - Progress Note Date of Service: 01/01/19 SOAP: Subjective: []Feels fine. Didn't sleep well last night so tired. Annoyed with length of time she has required inpt. stay d/t slow rise in INR. Has staging scans scheduled for tomorrow and f/u 01/05. Anxious to make sure she can go to wedding in [place] next weekened (01/10). Medications: Acetaminophen (Tylenol Tab*) 650 mg PO Q4H PRN PRN Reason: FEVER/PAIN Last Admin: 01/01/19 08:09 Dose: 650 mg Atorvastatin Calcium (Lipitor*) 20 mg PO QPM [facility] Last Admin: 12/31/18 17:29 Dose: 20 mg Cetirizine HCl (Zyrtec*) 10 mg PO BEDTIME [facility]; Protocol Last Admin: 12/31/18 20:57 Dose: 10 mg Docusate Sodium (Colace Cap*) 100 mg PO BID [facility] Last Admin: 01/01/19 08:07 Dose: 100 mg Heparin Sodium (Porcine) (Heparin Vial(*)) 0 units IV .FOR BOLUSES PRN PRN Reason: HEPARIN DRIP BOLUSES Last Admin: 12/24/18 21:20 Dose: 4,275 units Heparin Sodium/Dextrose (Heparin Drip 25,000 Units(*)) 25,000 units in 500 mls @ 0 mls/hr IV PER RATE [facility]; Protocol Last Admin: 12/31/18 03:05 Dose: 13 mls/hr Levothyroxine Sodium (Synthroid Tab*) 88 mcg PO DAILY@0600 [facility] Last Admin: 01/01/19 06:15 Dose: 88 mcg Lisinopril (Prinivil Tab*) 20 mg PO DAILY [facility] Last Admin: 01/01/19 08:07 Dose: 20 mg Magnesium Oxide (Magox 400 Tab*) 400 mg PO QPM [facility] Last Admin: 12/31/18 17:29 Dose: 400 mg Multivitamins/Minerals (Theragran/Minerals Tab*) 1 tab PO DAILY [facility] Last Admin: 01/01/19 08:07 Dose: 1 tab Ondansetron HCl (Zofran Tab*) 4 mg PO Q6H PRN PRN Reason: NAUSEA Pantoprazole Sodium (Protonix Tab*) 40 mg PO QPM [facility] Last Admin: 12/31/18 17:29 Dose: 40 mg Pharmacy Profile Note (Coumadin Daily Reminder*) 0 note FOLLOW UP 1700 [facility] Last Admin: 12/31/18 17:29 Dose: 1 note Polyethylene Glycol/Electrolytes (Miralax*) 17 gm PO DAILY PRN PRN Reason: CONSTIPATION Last Admin: 12/29/18 10:06 Dose: 17 gm Prochlorperazine (Compazine Tab*) 10 mg PO Q6H PRN PRN Reason: NAUSEA Ropinirole HCl (Requip Tab*) 3 mg PO 0000,1800 [facility] Last Admin: 12/31/18 23:43 Dose: 3 mg Senna (Senokot Tab*) 1 tab PO BEDTIME [facility] Last Admin: 12/31/18 20:57 Dose: 1 tab Warfarin Sodium (Coumadin Tab(*)) 4 mg PO DAILY@1700 [facility]; Protocol Last Admin: 12/31/18 17:29 Dose: 4 mg Warfarin Sodium (Coumadin Tab(*)) 5 mg PO DAILY@1700 [facility] Last Admin: 12/31/18 17:29 Dose: 5 mg Objective: [] Vital Signs Temp Pulse Resp BP Pulse Ox 97.5 F 73 18 142/55 95 01/01/19 07:16 01/01/19 07:16 01/01/19 08:00 01/01/19 07:16 01/01/19 07:16 A&Ox3, EOMI, neuro grossly non-focal HRR, S1S2 LS Clear throughout [facility], moving independently No edema Laboratory Results - last 24 hr 12/31/18 01/01/19 13:33 05:38 INR (Anticoag Therapy) 1.30 H APTT 54.3 H Assessment: []88 yo F on palliative carbo/gemcitabine for recurrent ovarian cancer (s/p 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 Plan: []-cont heparin drip -coumadin bridge, inc. to 9 mg yesterda, will need at least 5 dys heparin AND therapeutic INR -check INR daily, goal INR>/=2-3 -apply heat to right leg PRN Dispo: cont heparin drip, dc home when above criteria met - Restaging scans will be rescheduled as outpatient as Ca125 normalized no urgency
[2019-01-01] MEDS: Heparin DRIP 25,000 UNITS(*) 25,000 UNITS/500 ML BAG IV SCH (14:38)
[2019-01-01] MEDS: Atorvastatin* 20 MG TAB PO SCH (17:39)
[2019-01-01] MEDS: Magnesium Oxide TAB* 400 MG PO SCH (17:39)
[2019-01-01] MEDS: Warfarin TAB(*) 4 MG PO SCH (17:39)
[2019-01-01] MEDS: Warfarin TAB(*) 5 MG PO SCH (17:40)
[2019-01-01] MEDS: Pantoprazole TAB * 40 MG TAB PO SCH (17:40)
[2019-01-01] MEDS: rOPINIRole TAB* 1 MG PO SCH ×2 (17:41→23:31)
[2019-01-01] MEDS: Cetirizine* 10 MG TAB PO SCH (21:01)
[2019-01-01] MEDS: Senna TAB PO SCH (21:01)
[2019-01-02] MEDS: Acetaminophen TAB* 325 MG PO PRN (00:36)
[2019-01-02] MEDS: Levothyroxine TAB* 88 MCG TAB PO SCH (06:00)
[2019-01-02 06:14] LABS: Hematocrit 23 % (35-47); Mean Corpuscular HGB Conc 35 g/dL (31-36); Mean Corpuscular Hemoglobin 37 pg (27-31); Mean Corpuscular Volume 108 fL (80-97); Mean Platelet Volume 7.5 fL (7.4-10.4); Platelet Count 88 10^3/uL (150-450); Red Blood Count 2.15 10^6 /uL (3.70-4.87); Red Cell Distribution Width 20 % (10-15); White Blood Count 1.7 10^3/uL (3.5-10.8)
[2019-01-02 06:20] LABS: INR 1.51 (0.82-1.09)
[2019-01-02 06:23] LABS: Albumin 3.3 g/dL (3.2-5.2); Albumin/Globulin Ratio 1.3 (1-3); BUN/Creatinine Ratio 17.7 (8-20); Calcium 9.1 mg/dL (8.6-10.3); EGFR African American 49.6 (>60); Globulin 2.6 g/dL (2-4); Potassium 4.8 mmol/L (3.5-5.0); Total Bilirubin 0.2 mg/dL (0.2-1.0); Total Protein 5.9 g/dL (6.4-8.9)
[2019-01-02] MEDS: Docusate CAP* 100 MG PO SCH ×2 (09:15→20:51)
[2019-01-02] MEDS: Multivitamins/Minerals TAB PO SCH (09:15)
[2019-01-02] MEDS: Lisinopril TAB* 10 MG PO SCH (09:15)
[2019-01-02 09:22] LABS: ABS Lymphocytes 0.6 10^3/ul (1.0-4.8); ABS Monocytes 0.2 10^3/ul (0-0.8); ABS Neutrophils 0.8 10^3/ul (1.5-7.7); Eosinophil % 2.4 %; Lymphocyte % 36.5 %; Nucleated Red Blood Cells % 0.3
--- NOTE | 2019-01-02 09:45 | PN ---
Progress Note - Progress Note Date of Service: 01/02/19 SOAP: Subjective: []Cont.'s to feel well. No complaints. Right calf cont.'s to be tender at two small spots, but not really painful. Has not tried heat. Son at side and involved in care. Curious about the plan for her treatment. Medications: Acetaminophen (Tylenol Tab*) 650 mg PO Q4H PRN PRN Reason: FEVER/PAIN Last Admin: 01/02/19 00:36 Dose: 650 mg Atorvastatin Calcium (Lipitor*) 20 mg PO QPM [facility] Last Admin: 01/01/19 17:39 Dose: 20 mg Cetirizine HCl (Zyrtec*) 10 mg PO BEDTIME [facility]; Protocol Last Admin: 01/01/19 21:01 Dose: 10 mg Docusate Sodium (Colace Cap*) 100 mg PO BID [facility] Last Admin: 01/02/19 09:15 Dose: 100 mg Heparin Sodium (Porcine) (Heparin Vial(*)) 0 units IV .FOR BOLUSES PRN PRN Reason: HEPARIN DRIP BOLUSES Last Admin: 12/24/18 21:20 Dose: 4,275 units Heparin Sodium/Dextrose (Heparin Drip 25,000 Units(*)) 25,000 units in 500 mls @ 0 mls/hr IV PER RATE [facility]; Protocol Last Admin: 01/01/19 14:38 Dose: 13 mls/hr Levothyroxine Sodium (Synthroid Tab*) 88 mcg PO DAILY@0600 [facility] Last Admin: 01/02/19 06:00 Dose: 88 mcg Lisinopril (Prinivil Tab*) 20 mg PO DAILY [facility] Last Admin: 01/02/19 09:15 Dose: 20 mg Magnesium Oxide (Magox 400 Tab*) 400 mg PO QPM [facility] Last Admin: 01/01/19 17:39 Dose: 400 mg Multivitamins/Minerals (Theragran/Minerals Tab*) 1 tab PO DAILY [facility] Last Admin: 01/02/19 09:15 Dose: 1 tab Ondansetron HCl (Zofran Tab*) 4 mg PO Q6H PRN PRN Reason: NAUSEA Pantoprazole Sodium (Protonix Tab*) 40 mg PO QPM [facility] Last Admin: 01/01/19 17:40 Dose: 40 mg Pharmacy Profile Note (Coumadin Daily Reminder*) 0 note FOLLOW UP 1700 [facility] Last Admin: 01/01/19 17:40 Dose: 1 note Polyethylene Glycol/Electrolytes (Miralax*) 17 gm PO DAILY PRN PRN Reason: CONSTIPATION Last Admin: 12/29/18 10:06 Dose: 17 gm Prochlorperazine (Compazine Tab*) 10 mg PO Q6H PRN PRN Reason: NAUSEA Ropinirole HCl (Requip Tab*) 3 mg PO 0000,1800 [facility] Last Admin: 01/01/19 23:31 Dose: 3 mg Senna (Senokot Tab*) 1 tab PO BEDTIME [facility] Last Admin: 01/01/19 21:01 Dose: Not Given Warfarin Sodium (Coumadin Tab(*)) 4 mg PO DAILY@1700 [facility]; Protocol Last Admin: 01/01/19 17:39 Dose: 4 mg Warfarin Sodium (Coumadin Tab(*)) 5 mg PO DAILY@1700 [facility] Last Admin: 01/01/19 17:40 Dose: 5 mg Objective: [] Vital Signs Temp Pulse Resp BP Pulse Ox 97.6 F 63 16 122/41 95 01/02/19 03:16 01/02/19 03:16 01/02/19 03:16 01/02/19 03:16 01/02/19 03:16 A&Ox3, EOMI, PERRLA, neuro grossly non-focal HRR, S1S2 LS clear Right calf without warmth or edema Laboratory Tests 12/31/18 01/01/19 01/02/19 05:20 05:38 05:47 INR (Anticoag Therapy) 1.21 H 1.30 H 1.51 H 01/02/19 01/02/19 05:47 05:47 WBC 1.7 L RBC 2.15 L Hgb 8.0 L Hct 23 L MCV 108 H MCH 37 H Plt Count 88 L Absolute Neuts (auto) 0.8 L Sodium 136 Potassium 4.8 Chloride 106 Creatinine 1.24 H Assessment: []88 yo F on palliative carbo/gemcitabine for 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 Plan: []DVT: - cont heparin drip - coumadin bridge, inc. to 12 mg today - check INR daily, goal INR 2-3, will need slight overlap - apply heat to right leg PRN Cancer: - would have been due for C3D8 12/31, however delayed due to admission - she travels to [place] for great grandniece's wedding 01/09 therefore we may skip this dose for her QOL, however I will defer to Dr. Morales - itchy palmjacinta at completion of carbo on C3D1 (12/24) per her report, may want to add benadryl with tx. - normalized Ca125 therefore restaging scans will likely be delayed until after C4 Pancytopenia: - chemo induced, cont. to follow - consider transfusion prior to d/c if hmg remains~8 Dispo: awaiting INR >/= 2
[2019-01-02] MEDS: Magnesium Oxide TAB* 400 MG PO SCH (18:15)
[2019-01-02] MEDS: Warfarin TAB(*) 6 MG PO SCH (18:15)
[2019-01-02] MEDS: rOPINIRole TAB* 1 MG PO SCH ×2 (18:15→23:58)
[2019-01-02] MEDS: Atorvastatin* 20 MG TAB PO SCH (18:15)
[2019-01-02] MEDS: Pantoprazole TAB * 40 MG TAB PO SCH (18:41)
[2019-01-02] MEDS: Senna TAB PO SCH (20:51)
[2019-01-02] MEDS: Cetirizine* 10 MG TAB PO SCH (20:54)
[2019-01-03] MEDS: Levothyroxine TAB* 88 MCG TAB PO SCH (05:45)
[2019-01-03 06:51] LABS: INR 1.66 (0.82-1.09)
--- NOTE | 2019-01-03 07:38 | PN ---
Progress Note - Progress Note Date of Service: 01/03/19 SOAP: Subjective: feels great today. up, dressed, walking around. leg feels better. Objective: Vital Signs Temp Pulse Resp BP Pulse Ox 98.2 F 67 17 117/47 93 01/03/19 03:07 01/03/19 03:07 01/03/19 03:07 01/03/19 03:07 01/03/19 03:07 sitting up in chair in nad perr eomi op moist CTA bl s1 s2 nl soft nt +Bs trace le edema bl A+O x 3, nonfocal neurological exam Laboratory Results - last 24 hr 01/02/19 01/02/19 01/03/19 05:47 15:49 06:39 WBC 1.7 L RBC 2.15 L Hgb 8.0 L Hct 23 L MCV 108 H MCH 37 H MCHC 35 RDW 20 H Plt Count 88 L MPV 7.5 Neut % (Auto) 49.0 Lymph % (Auto) 36.5 [place] % (Auto) 11.3 Eos % (Auto) 2.4 Baso % (Auto) 0.8 Absolute Neuts (auto) 0.8 L Absolute Lymphs (auto) 0.6 L Absolute Monos (auto) 0.2 Absolute Eos (auto) 0.0 Absolute Basos (auto) 0.0 Absolute Nucleated RBC 0.0 Immature Gran % Cancelled Neutrophils % Cancelled Band Neutrophils % Cancelled Lymphocytes % Cancelled Reactive Lymphs % Cancelled Monocytes % Cancelled Eosinophils % Cancelled Basophils % Cancelled Metamyelocytes % Cancelled Myelocytes % Cancelled Promyelocytes % Cancelled Blast Cells % Cancelled Nucleated RBC % 0.3 Abs Neuts (Manual) Cancelled Abs Lymphs (Manual) Cancelled Abs Monocytes (Manual) Cancelled Absolute Eos (Manual) Cancelled Abs Basophils (Manual) Cancelled Nucleated RBCs/100 WBC Cancelled Smudge Cells Cancelled Toxic Granulation Cancelled Dohle Bodies Cancelled Platelet Morphology Cancelled Normal RBC Morphology Cancelled Polychromasia Cancelled Hypochromasia Cancelled Basophilic Stippling Cancelled Anisocytosis Cancelled Microcytosis Cancelled Macrocytosis Cancelled Spherocytes Cancelled Sickle Cells Cancelled Target Cells Cancelled Tear Drop Cells Cancelled Stomatocytes Cancelled [place] Bodies Cancelled [place] Cells Cancelled Elliptocytes Cancelled Acanthocytes (Spur) Cancelled Rouleaux Cancelled Schistocytes Cancelled INR (Anticoag Therapy) 1.66 H APTT 63.7 H Acetaminophen (Tylenol Tab*) 650 mg PO Q4H PRN PRN Reason: FEVER/PAIN Last Admin: 01/02/19 00:36 Dose: 650 mg Atorvastatin Calcium (Lipitor*) 20 mg PO QPM [facility] Last Admin: 01/02/19 18:15 Dose: 20 mg Cetirizine HCl (Zyrtec*) 10 mg PO BEDTIME [facility]; Protocol Last Admin: 01/02/19 20:54 Dose: 10 mg Docusate Sodium (Colace Cap*) 100 mg PO BID [facility] Last Admin: 01/02/19 20:51 Dose: Not Given Heparin Sodium (Porcine) (Heparin Vial(*)) 0 units IV .FOR BOLUSES PRN PRN Reason: HEPARIN DRIP BOLUSES Last Admin: 12/24/18 21:20 Dose: 4,275 units Heparin Sodium/Dextrose (Heparin Drip 25,000 Units(*)) 25,000 units in 500 mls @ 0 mls/hr IV PER RATE [facility]; Protocol Last Admin: 01/01/19 14:38 Dose: 13 mls/hr Levothyroxine Sodium (Synthroid Tab*) 88 mcg PO DAILY@0600 [facility] Last Admin: 01/03/19 05:45 Dose: 88 mcg Lisinopril (Prinivil Tab*) 20 mg PO DAILY [facility] Last Admin: 01/02/19 09:15 Dose: 20 mg Magnesium Oxide (Magox 400 Tab*) 400 mg PO QPM [facility] Last Admin: 01/02/19 18:15 Dose: 400 mg Multivitamins/Minerals (Theragran/Minerals Tab*) 1 tab PO DAILY [facility] Last Admin: 01/02/19 09:15 Dose: 1 tab Ondansetron HCl (Zofran Tab*) 4 mg PO Q6H PRN PRN Reason: NAUSEA Pantoprazole Sodium (Protonix Tab*) 40 mg PO QPM [facility] Last Admin: 01/02/19 18:41 Dose: 40 mg Pharmacy Profile Note (Coumadin Daily Reminder*) 0 note FOLLOW UP 1700 [facility] Last Admin: 01/02/19 18:41 Dose: 1 note Polyethylene Glycol/Electrolytes (Miralax*) 17 gm PO DAILY PRN PRN Reason: CONSTIPATION Last Admin: 12/29/18 10:06 Dose: 17 gm Prochlorperazine (Compazine Tab*) 10 mg PO Q6H PRN PRN Reason: NAUSEA Ropinirole HCl (Requip Tab*) 3 mg PO 0000,1800 [facility] Last Admin: 01/02/19 23:58 Dose: 3 mg Senna (Senokot Tab*) 1 tab PO BEDTIME [facility] Last Admin: 01/02/19 20:51 Dose: Not Given Warfarin Sodium (Coumadin Tab(*)) 12 mg PO DAILY@1700 [facility]; Protocol Last Admin: 01/02/19 18:15 Dose: 12 mg Assessment: 88 yo F on palliative carbo/gemcitabine for 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 Plan: DVT: - cont heparin drip - coumadin bridge, inc. to 12 mg saturday-no increase until Saturday - check INR daily, goal INR 2-3, will need slight overlap - apply heat to right leg PRN Cancer: - now on every OTHER week carbo/gem (day 1 and 15). would be due 01/07 but with travel plans will treat when comes back] - itchy palms at completion of carbo on C3D1 (12/24) per her report, added pepcid and zyrtec for next treatment - normalized Ca125 therefore restaging scans will likely be delayed until after C4 Pancytopenia: - chemo induced, cont. to follow - consider transfusion prior to d/c if hmg remains~8 Dispo: awaiting INR >/= 2
[2019-01-03] MEDS: Docusate CAP* 100 MG PO SCH ×2 (08:43→20:41)
[2019-01-03] MEDS: Lisinopril TAB* 10 MG PO SCH (08:43)
[2019-01-03] MEDS: Multivitamins/Minerals TAB PO SCH (08:43)
[2019-01-03] MEDS: Warfarin TAB(*) 6 MG PO SCH (18:19)
[2019-01-03] MEDS: rOPINIRole TAB* 1 MG PO SCH (18:19)
[2019-01-03] MEDS: Magnesium Oxide TAB* 400 MG PO SCH (18:19)
[2019-01-03] MEDS: Atorvastatin* 20 MG TAB PO SCH (18:19)
[2019-01-03] MEDS: Heparin DRIP 25,000 UNITS(*) 25,000 UNITS/500 ML BAG IV SCH (18:19)
[2019-01-03] MEDS: Pantoprazole TAB * 40 MG TAB PO SCH (18:19)
[2019-01-03] MEDS: Cetirizine* 10 MG TAB PO SCH (20:41)
[2019-01-03] MEDS: Senna TAB PO SCH (20:41)
[2019-01-04] MEDS: rOPINIRole TAB* 1 MG PO SCH (00:24)
[2019-01-04] MEDS: Levothyroxine TAB* 88 MCG TAB PO SCH (05:44)
[2019-01-04 06:46] LABS: Albumin 3.4 g/dL (3.2-5.2); Albumin/Globulin Ratio 1.3 (1-3); BUN/Creatinine Ratio 22.4 (8-20); Calcium 9.2 mg/dL (8.6-10.3); EGFR African American 42.1 (>60); EGFR Non-African American 34.8 (>60); Globulin 2.6 g/dL (2-4); Potassium 4.7 mmol/L (3.5-5.0); Total Bilirubin 0.2 mg/dL (0.2-1.0)
[2019-01-04 06:47] LABS: ABS Lymphocytes 0.5 10^3/ul (1.0-4.8); ABS Monocytes 0.4 10^3/ul (0-0.8); ABS Neutrophils 1.3 10^3/ul (1.5-7.7); Eosinophil % 1.8 %; Hematocrit 25 % (35-47); Hemoglobin 8.6 g/dL (12.0-16.0); Lymphocyte % 21.9 %; Mean Corpuscular HGB Conc 35 g/dL (31-36); Mean Corpuscular Hemoglobin 37 pg (27-31); Mean Corpuscular Volume 108 fL (80-97); Nucleated Red Blood Cells % 0.2; Red Blood Count 2.31 10^6 /uL (3.70-4.87); Red Cell Distribution Width 20 % (10-15); White Blood Count 2.2 10^3/uL (3.5-10.8)
[2019-01-04 06:48] LABS: INR 2.13 (0.82-1.09)
[2019-01-04 07:30] LABS: Mean Platelet Volume 8.3 fL (7.4-10.4); Platelet Count 96 10^3/uL (150-450)
--- NOTE | 2019-01-04 07:50 | DS ---
- Discharge Summary INPATIENT DISCHARGE SUMMARY: ADMIT DATE: 12/24/2018 DISCHARGE DATE: 01/04/2019 DISCHARGE DIAGNOSIS: 1. DVT, lovenox failure 2. chronic renal insufficiency 3. pancytopenia, chemotherapy induced 4. metastatic ovarian cancer on palliative chemotherapy DISCHARGE MEDICATIONS: Home Medications Medication Instructions Recorded Confirmed Type Acetaminophen TAB* [Tylenol TAB*] 650 mg PO Q6H PRN 10/31/15 12/24/18 History Calcium 250 mg PO DAILY 10/31/15 12/24/18 History Fexofenadine (NF) [Mallory 180 180 mg PO BEDTIME 10/31/15 12/24/18 History (NF)] Levothyroxine TAB* [Synthroid 75 88 mcg PO DAILY 10/31/15 12/24/18 History MCG TAB*] Lidocaine/PRILOCAINE* [Emla*] 1 applic TOPICAL DAILY PRN 10/31/15 12/24/18 History Lisinopril TAB* [Prinivil TAB 10 20 mg PO DAILY 10/31/15 12/24/18 History MG*] Multivitamins/Minerals TAB* [Thera 1 tab PO DAILY 10/31/15 12/24/18 History M Plus TAB*] Omeprazole CAP (NF) [Prilosec CAP* 20 mg PO DAILY 10/31/15 12/24/18 History 20 MG] Ondansetron TAB* [Zofran 4 MG Tab*] 4 mg PO Q6H PRN 10/31/15 12/24/18 History Simvastatin TAB(NF) [Zocor 20 MG 40 mg PO BEDTIME 10/31/15 12/24/18 History (NF)] rOPINIRole TAB* [Requip TAB*] 3 mg PO BID 10/31/15 12/24/18 History Magnesium Oxide [Magnesium] 1 tab PO DAILY 12/24/18 12/24/18 History Prochlorperazine TAB* [Compazine 10 mg PO Q6H PRN 12/24/18 12/24/18 History Tab*] Docusate CAP* [Colace Cap*] 100 mg PO BID cap 01/04/19 Rx Warfarin TAB(*) [Coumadin TAB(*)] 12 mg PO DAILY@1700 #60 tab 01/04/19 Rx DISCHARGE FOLLOW UP: 1. Dr. Morales's office 6/18 at 9 am for INR check HOSPITAL COURSE: Edyta is an 88 yo F w a h/o a DVT that had already failed NOACs, presenting on therapeutic lovenox with progressive DVT symptoms, confirmed by imaging. Given her GFR of <30 it was not felt safe to bridge with arixtra and so she was admitted for heparin drip to coumadin bridge. She took a significant amount of time to become therapeutic and is currently on 12 mg daily with a therapeutic INR. She has been on this dose for only 2 days and so it is possible that we will overshoot her range of 2-3. Given this she will have close follow up with an INR check on Saturday. Her day 15 chemotherpay will be held this week as she is going out of town on Saturday for a . Reassuringly her CA 125 is falling. She will have her cycle 3 day 15 dose the following week. She was advised to call with any excess bruising or bleeding. She had afebrile pancytopenia as expected with this chemotherapy regimen and was no longer neutropenic at discharge. >30 mins spent, >50% in face to face counseling
[2019-01-04 08:02] VITALS: BP 117/62
[2019-01-04] MEDS: Docusate CAP* 100 MG PO SCH (08:10)
[2019-01-04] MEDS: Multivitamins/Minerals TAB PO SCH (08:10)
[2019-01-04] MEDS: Lisinopril TAB* 10 MG PO SCH (08:10)
== END 2019-01-04 10:45 | disposition home or self-care (01) | DRG 300 ==
LOC: MED 16:57
PROVIDERS: ADMIT Internal Medicine Hematology & Oncology; ATTEND Internal Medicine Hematology & Oncology
DX: I82.401 Acute embolism and thrombosis of unspecified deep veins of right lower extremity (principal); D61.818 Other pancytopenia; C56.9 Malignant neoplasm of unspecified ovary; C78.6 Secondary malignant neoplasm of retroperitoneum and peritoneum; C78.5 Secondary malignant neoplasm of large intestine and rectum; E11.40 Type 2 diabetes mellitus with diabetic neuropathy, unspecified; I10 Essential (primary) hypertension; E03.9 Hypothyroidism, unspecified; M81.0 Age-related osteoporosis without current pathological fracture; G25.81 Restless legs syndrome; Z85.3 Personal history of malignant neoplasm of breast; Z88.8 Allergy status to other drugs, medicaments and biological substances; Z79.1 Long term (current) use of non-steroidal anti-inflammatories (NSAID); Z79.899 Other long term (current) drug therapy; Z79.84 Long term (current) use of oral hypoglycemic drugs; Z80.3 Family history of malignant neoplasm of breast; Z86.718 Personal history of other venous thrombosis and embolism; Z79.01 Long term (current) use of anticoagulants; Z86.711 Personal history of pulmonary embolism
CPT/HCPCS: 36415; 80053; 82565; 84520; 85025; 85027; 85610; 85730; 99232; 99239; A9270-GY; J1642; J1644

== ENCOUNTER 2020-06-04 17:03 | Inpatient (IN) ==
[2020-06-04] MEDS ORDERED: NS 0.9% 1000 ml BAG 1,000 ML IV ONE ×2 (17:32→19:05)
[2020-06-04] MEDS ORDERED: Piperacillin/Tazobac ADVAN 3.375 GM in NS 0.9% 100 ml BAG 100 ML IVPB ONE (17:33)
[2020-06-04 18:44] LABS: ABS Basophils 0.1 10^3/ul (0-0.2); ABS Eosinophils 0.1 10^3/ul (0-0.6); ABS Lymphocytes 0.7 10^3/ul (1.0-4.8); ABS Monocytes 0.6 10^3/ul (0-0.8); ABS Neutrophils 10.2 10^3/ul (1.5-7.7); Eosinophil % 0.7 %; Hematocrit 40 % (35-47); Hemoglobin 13.6 g/dL (12.0-16.0); Lymphocyte % 5.6 %; Mean Corpuscular HGB Conc 34 g/dL (31-36); Mean Corpuscular Hemoglobin 37 pg (27-31); Mean Corpuscular Volume 107 fL (80-97); Mean Platelet Volume 7.4 fL (7.4-10.4); Nucleated Red Blood Cells % 0.1; Platelet Count 342 10^3/uL (150-450); Red Blood Count 3.72 10^6 /uL (3.70-4.87); Red Cell Distribution Width 15 % (10-15); White Blood Count 11.6 10^3/uL (3.5-10.8)
[2020-06-04 18:53] LABS: Activated Partial Thrombo Time 34.1 seconds (26.0-38.0); INR 3.39 (0.82-1.09)
[2020-06-04] MEDS ORDERED: Ondansetron 4 mg VIAL 2 MG/ML 2 ml VIAL IV ONE (18:55)
[2020-06-04 18:57] LABS: Influenza A Molecular Negative (Negative); Influenza B Molecular Negative (Negative)
[2020-06-04 19:00] LABS: ALT 19 U/L (7-52); Albumin 4.1 g/dL (3.2-5.2); Albumin/Globulin Ratio 1.2 (1-3); Alkaline Phosphatase 281 U/L (34-104); BUN/Creatinine Ratio 16.1 (8-20); Blood Urea Nitrogen 31 mg/dL (6-24); C Reactive Protein 1.11 mg/L (<8.01); CO2 Carbon Dioxide 23 mmol/L (22-32); Calcium 10.8 mg/dL (8.6-10.3); Chloride 97 mmol/L (101-111); EGFR African American 29.7 (>60); EGFR Non-African American 24.6 (>60); Globulin 3.5 g/dL (2-4); Glucose 181 mg/dL (70-100); Sodium 132 mmol/L (135-145); Total Protein 7.6 g/dL (6.4-8.9)
[2020-06-04 19:02] LABS: Troponin I 0.01 ng/mL (<0.03)
[2020-06-04 19:53] LABS: Anion Gap 12 mmol/L (2-11)
[2020-06-04] MEDS ORDERED: Ondansetron 4 mg VIAL 2 MG/ML 2 ml VIAL IV PRN (20:36)
[2020-06-04 20:54] LABS: Magnesium 2.6 mg/dL (1.9-2.7); Potassium Redraw 4.2 mmol/L (3.5-5.0)
[2020-06-04] MEDS ORDERED: Zosyn per Pharmacy NOTE FOLLOW UP SCH (21:00)
[2020-06-05] MEDS: ZOSYN 3.375 GM Q12H per EXTENDED INFUSION IV SCH ×3 (00:19→22:36)
[2020-06-05] MEDS: NS 0.9% 1000 ml BAG 1,000 ML IV SCH ×2 (00:19→14:04)
[2020-06-05] MEDS ORDERED: oxyCODONE/Acetamin 5/325 mg TAB ONE (01:48)
[2020-06-05] MEDS ORDERED: oxyCODONE/Acetamin 5/325 mg TAB PO PRN (02:00)
[2020-06-05] MEDS ORDERED: Piperacillin/Tazobac ADVAN 3.375 GM in NS 0.9% 100 ml BAG 100 ML IV ONE (03:00)
[2020-06-05 09:45] LABS: ABS Lymphocytes 0.5 10^3/ul (1.0-4.8); ABS Monocytes 0.8 10^3/ul (0-0.8); ABS Neutrophils 5.8 10^3/ul (1.5-7.7); Eosinophil % 0.5 %; Hematocrit 31 % (35-47); Hemoglobin 10.6 g/dL (12.0-16.0); Lymphocyte % 6.7 %; Mean Corpuscular HGB Conc 34 g/dL (31-36); Mean Corpuscular Hemoglobin 37 pg (27-31); Mean Corpuscular Volume 108 fL (80-97); Mean Platelet Volume 6.9 fL (7.4-10.4); Platelet Count 218 10^3/uL (150-450); Red Blood Count 2.86 10^6 /uL (3.70-4.87); Red Cell Distribution Width 15 % (10-15); White Blood Count 7.1 10^3/uL (3.5-10.8)
[2020-06-05 09:46] LABS: Calcium 8.3 mg/dL (8.6-10.3); EGFR African American 31.8 (>60); EGFR Non-African American 26.3 (>60); Potassium 4.2 mmol/L (3.5-5.0)
[2020-06-05 09:55] LABS: INR 3.47 (0.82-1.09)
[2020-06-05] MEDS: CMCS: Simvastatin 20 mg TAB (NF) PO SCH (22:36)
[2020-06-06 05:43] LABS: ABS Eosinophils 0.1 10^3/ul (0-0.6); ABS Lymphocytes 0.4 10^3/ul (1.0-4.8); ABS Monocytes 0.5 10^3/ul (0-0.8); ABS Neutrophils 6.2 10^3/ul (1.5-7.7); Hematocrit 26 % (35-47); Hemoglobin 8.8 g/dL (12.0-16.0); Lymphocyte % 5.7 %; Mean Corpuscular HGB Conc 35 g/dL (31-36); Mean Corpuscular Hemoglobin 37 pg (27-31); Mean Corpuscular Volume 106 fL (80-97); Mean Platelet Volume 6.9 fL (7.4-10.4); Platelet Count 177 10^3/uL (150-450); Red Cell Distribution Width 16 % (10-15); White Blood Count 7.2 10^3/uL (3.5-10.8)
[2020-06-06 06:02] LABS: BUN/Creatinine Ratio 13.9 (8-20); Calcium 7.9 mg/dL (8.6-10.3); EGFR African American 39.4 (>60); EGFR Non-African American 32.6 (>60); Potassium 3.7 mmol/L (3.5-5.0)
[2020-06-06 06:45] LABS: INR 3.67 (0.82-1.09)
[2020-06-06 14:26] LABS: ABS Eosinophils 0.1 10^3/ul (0-0.6); ABS Lymphocytes 0.5 10^3/ul (1.0-4.8); ABS Monocytes 0.6 10^3/ul (0-0.8); ABS Neutrophils 6.2 10^3/ul (1.5-7.7); Eosinophil % 0.9 %; Hematocrit 29 % (35-47); Hemoglobin 9.8 g/dL (12.0-16.0); Lymphocyte % 6.3 %; Mean Corpuscular HGB Conc 34 g/dL (31-36); Mean Corpuscular Hemoglobin 36 pg (27-31); Mean Corpuscular Volume 108 fL (80-97); Mean Platelet Volume 6.8 fL (7.4-10.4); Platelet Count 168 10^3/uL (150-450); Red Cell Distribution Width 15 % (10-15); White Blood Count 7.3 10^3/uL (3.5-10.8)
[2020-06-06] MEDS: CMCS: Simvastatin 20 mg TAB (NF) PO SCH (20:44)
[2020-06-07 06:40] LABS: ABS Eosinophils 0.1 10^3/ul (0-0.6); ABS Lymphocytes 0.4 10^3/ul (1.0-4.8); ABS Monocytes 0.5 10^3/ul (0-0.8); ABS Neutrophils 4.6 10^3/ul (1.5-7.7); Eosinophil % 1.2 %; Hematocrit 26 % (35-47); Hemoglobin 8.9 g/dL (12.0-16.0); Lymphocyte % 7.6 %; Mean Corpuscular HGB Conc 34 g/dL (31-36); Mean Corpuscular Hemoglobin 37 pg (27-31); Mean Corpuscular Volume 106 fL (80-97); Mean Platelet Volume 6.9 fL (7.4-10.4); Platelet Count 168 10^3/uL (150-450); Red Blood Count 2.44 10^6 /uL (3.70-4.87); Red Cell Distribution Width 15 % (10-15); White Blood Count 5.7 10^3/uL (3.5-10.8)
[2020-06-07 06:53] LABS: BUN/Creatinine Ratio 10.9 (8-20); Calcium 8.2 mg/dL (8.6-10.3); EGFR African American 56.9 (>60); Potassium 3.6 mmol/L (3.5-5.0)
[2020-06-07 06:59] LABS: INR 2.76 (0.82-1.09)
[2020-06-07 12:23] VITALS: BP 141/46
== END 2020-06-07 15:30 | disposition home or self-care (01) | DRG 392 ==
LOC: ED 17:03 → MED 20:36
PROVIDERS: ADMIT Internal Medicine; ATTEND Internal Medicine

== ENCOUNTER 2021-05-18 22:48 | Inpatient (IN) ==
[2021-05-18] MEDS ORDERED: HYDROcodone/ACETAMIN 5/325 mg TAB PO ONE (23:32)
[2021-05-19 00:16] LABS: Hematocrit 31 % (35-47); Hemoglobin 10.8 g/dL (12.0-16.0); Mean Corpuscular HGB Conc 35 g/dL (31-36); Mean Corpuscular Hemoglobin 37 pg (27-31); Mean Corpuscular Volume 105 fL (80-97); Mean Platelet Volume 6.8 fL (7.4-10.4); Platelet Count 25 10^3/uL (150-450); Red Cell Distribution Width 14 % (10-15); White Blood Count 0.3 10^3/uL (3.5-10.8)
[2021-05-19 00:20] LABS: Albumin 3.9 g/dL (3.2-5.2); Albumin/Globulin Ratio 1.1 (1-3); C Reactive Protein 48.11 mg/L (<8.01); Calcium 9.7 mg/dL (8.6-10.3); Globulin 3.5 g/dL (2-4); Potassium 4.5 mmol/L (3.5-5.0); Total Bilirubin 0.6 mg/dL (0.2-1.0); Total Protein 7.4 g/dL (6.4-8.9)
[2021-05-19 00:21] LABS: Activated Partial Thrombo Time 37.7 seconds (26.0-38.0); INR 2.8 (0.86-1.15)
[2021-05-19 00:22] LABS: Troponin I 0.01 ng/mL (<0.03)
[2021-05-19 00:30] LABS: Rapid COVID-19 Molecular Undetected (Undetected)
[2021-05-19 01:29] LABS: ABS Lymphocytes 0.2 10^3/ul (1.0-4.8); Eosinophil % 8.6 %
[2021-05-19] MEDS ORDERED: Cefepime 2 GM in Dextrose 2 GM/50 ML BAG IV ONE ×2 (04:21→12:58)
[2021-05-19 04:46] LABS: Urine Appearance Cloudy; Urine Bilirubin Negative (Negative); Urine Blood Negative (Negative); Urine Color Yellow; Urine Glucose Negative (Negative); Urine Ketones Negative (Negative); Urine Nitrite Negative (Negative); Urine Protein Negative (Negative); Urine Specific Gravity 1.015 (1.002-1.030); Urine Urobilinogen Negative (Negative)
[2021-05-19 10:46] LABS: Rapid COVID-19 Molecular Undetected (Undetected)
[2021-05-19] MEDS ORDERED: Cefepime 2 GM in Dextrose 2 GM/50 ML BAG IV SCH ×2 (12:00→16:00)
[2021-05-19] MEDS ORDERED: NS 0.9% 1000 ml BAG 1,000 ML IV SCH (12:45)
[2021-05-20] MEDS: Ondansetron 4 mg VIAL 2 MG/ML 2 ml VIAL IV PRN (00:54)
[2021-05-20] MEDS: Multivitamins/Minerals TAB PO SCH (09:07)
[2021-05-20 11:03] LABS: Hematocrit 25 % (35-47); Hemoglobin 8.9 g/dL (12.0-16.0); Mean Corpuscular HGB Conc 36 g/dL (31-36); Mean Corpuscular Hemoglobin 37 pg (27-31); Mean Corpuscular Volume 106 fL (80-97); Mean Platelet Volume 7.3 fL (7.4-10.4); Platelet Count 19 10^3/uL (150-450); Red Blood Count 2.39 10^6 /uL (3.70-4.87); Red Cell Distribution Width 14 % (10-15); White Blood Count 0.2 10^3/uL (3.5-10.8)
[2021-05-20 11:06] LABS: INR 2.48 (0.86-1.15)
[2021-05-20 11:15] LABS: Calcium 8.6 mg/dL (8.6-10.3); Potassium 4.3 mmol/L (3.5-5.0)
[2021-05-20 11:27] LABS: ABS Lymphocytes 0.1 10^3/ul (1.0-4.8); Eosinophil % 11.9 %; Lymphocyte % 55.6 %; Nucleated Red Blood Cells % 1.5
[2021-05-20] MEDS: Cefepime 2 GM in Dextrose 2 GM/50 ML BAG IV SCH (13:32)
[2021-05-20] MEDS ORDERED: Cefepime 2 GM in Dextrose 2 GM/50 ML BAG IV SCH (16:00)
[2021-05-21] MEDS ORDERED: Calamine/Pramoxine LOTION 8%/1% 180 ML TOPICAL ONE (02:30)
[2021-05-21] MEDS: Ondansetron 4 mg VIAL 2 MG/ML 2 ml VIAL IV PRN ×2 (02:35→12:48)
[2021-05-21 04:57] LABS: Hematocrit 23 % (35-47); Hemoglobin 8.1 g/dL (12.0-16.0); Mean Corpuscular HGB Conc 35 g/dL (31-36); Mean Corpuscular Hemoglobin 37 pg (27-31); Mean Corpuscular Volume 105 fL (80-97); Mean Platelet Volume 7.3 fL (7.4-10.4); Platelet Count 20 10^3/uL (150-450); Red Blood Count 2.19 10^6 /uL (3.70-4.87); Red Cell Distribution Width 14 % (10-15); White Blood Count 0.2 10^3/uL (3.5-10.8)
[2021-05-21 05:07] LABS: Calcium 8.4 mg/dL (8.6-10.3); Potassium 4.3 mmol/L (3.5-5.0)
[2021-05-21 05:48] LABS: RBC Morphology Normal (Normal)
[2021-05-21 05:49] LABS: Macrocytosis 1+
[2021-05-21 07:07] LABS: ABS Lymphocytes 0.1 10^3/ul (1.0-4.8)
[2021-05-21] MEDS: Multivitamins/Minerals TAB PO SCH (08:38)
[2021-05-21] MEDS: Cefepime 2 GM in Dextrose 2 GM/50 ML BAG IV SCH (12:48)
[2021-05-21 13:23] LABS: Total Iron Binding Capacity 241 mcg/dL (250-450); Transferrin 172 mg/dL (203-362)
[2021-05-21 13:25] LABS: Unsaturated Iron Binding < 226 ug/dL
[2021-05-21 13:45] LABS: Ferritin 555.6 ng/mL (11-307)
[2021-05-21 13:49] LABS: Folate 15.77 ng/mL (5.90-24.80)
[2021-05-21 13:50] LABS: Vitamin B12 330 pg/mL (180-914)
[2021-05-22 05:03] LABS: Hematocrit 24 % (35-47); Hemoglobin 8.5 g/dL (12.0-16.0); Mean Corpuscular HGB Conc 35 g/dL (31-36); Mean Corpuscular Hemoglobin 37 pg (27-31); Mean Corpuscular Volume 106 fL (80-97); Mean Platelet Volume 8.3 fL (7.4-10.4); Platelet Count 41 10^3/uL (150-450); Red Blood Count 2.28 10^6 /uL (3.70-4.87); Red Cell Distribution Width 14 % (10-15); White Blood Count 0.4 10^3/uL (3.5-10.8)
[2021-05-22 05:08] LABS: Calcium 8.5 mg/dL (8.6-10.3); Potassium 4.5 mmol/L (3.5-5.0)
[2021-05-22 05:38] LABS: ABS Lymphocytes 0.2 10^3/ul (1.0-4.8); ABS Monocytes 0.1 10^3/ul (0-0.8); Eosinophil % 9.1 %; Lymphocyte % 46.2 %; Nucleated Red Blood Cells % 1.9
[2021-05-22 05:40] LABS: ABS Neutrophils 0.1 10^3/ul (1.5-7.7)
[2021-05-22] MEDS: Multivitamins/Minerals TAB PO SCH (08:47)
[2021-05-22] MEDS ORDERED: Polyethylene Glycol 3350 17 GM PACKET PO ONE (08:52)
[2021-05-22] MEDS: Ondansetron 4 mg VIAL 2 MG/ML 2 ml VIAL IV PRN ×2 (08:52→20:36)
[2021-05-22] MEDS: Senna TAB 8.6 mg TAB PO SCH ×2 (10:22→20:32)
[2021-05-22] MEDS: Cefepime 2 GM in Dextrose 2 GM/50 ML BAG IV SCH (13:05)
[2021-05-22] MEDS ORDERED: NS 0.9% 1000 ml BAG 1,000 ML IV SCH (14:15)
[2021-05-22] MEDS: Magic MouthWash1-BEN/MAAL/LIDO 180 ML BTL SWISH SPIT SCH (16:42)
[2021-05-23 05:38] LABS: INR 1.39 (0.86-1.15)
[2021-05-23 05:40] LABS: ABS Lymphocytes 0.2 10^3/ul (1.0-4.8); ABS Monocytes 0.1 10^3/ul (0-0.8); ABS Neutrophils 0.1 10^3/ul (1.5-7.7); Eosinophil % 8.1 %; Hematocrit 24 % (35-47); Hemoglobin 8.6 g/dL (12.0-16.0); Lymphocyte % 35.9 %; Mean Corpuscular HGB Conc 36 g/dL (31-36); Mean Corpuscular Hemoglobin 38 pg (27-31); Mean Corpuscular Volume 106 fL (80-97); Mean Platelet Volume 8.2 fL (7.4-10.4); Nucleated Red Blood Cells % 0.8; Platelet Count 62 10^3/uL (150-450); Red Blood Count 2.26 10^6 /uL (3.70-4.87); Red Cell Distribution Width 14 % (10-15); White Blood Count 0.5 10^3/uL (3.5-10.8)
[2021-05-23 05:53] LABS: Calcium 8.6 mg/dL (8.6-10.3); Potassium 4.6 mmol/L (3.5-5.0)
[2021-05-23] MEDS: Multivitamins/Minerals TAB PO SCH (09:35)
[2021-05-23] MEDS: Senna TAB 8.6 mg TAB PO SCH ×2 (09:35→20:00)
[2021-05-23] MEDS: Magic MouthWash1-BEN/MAAL/LIDO 180 ML BTL SWISH SPIT SCH ×3 (09:37→16:31)
[2021-05-23] MEDS: Cefepime 2 GM in Dextrose 2 GM/50 ML BAG IV SCH (13:50)
[2021-05-24] MEDS: Ondansetron 4 mg VIAL 2 MG/ML 2 ml VIAL IV PRN (06:20)
[2021-05-24 07:07] LABS: Hematocrit 23 % (35-47); Hemoglobin 8.2 g/dL (12.0-16.0); Mean Corpuscular HGB Conc 36 g/dL (31-36); Mean Corpuscular Hemoglobin 38 pg (27-31); Mean Corpuscular Volume 107 fL (80-97); Mean Platelet Volume 7.8 fL (7.4-10.4); Platelet Count 88 10^3/uL (150-450); Red Blood Count 2.15 10^6 /uL (3.70-4.87); Red Cell Distribution Width 14 % (10-15); White Blood Count 0.9 10^3/uL (3.5-10.8)
[2021-05-24 07:21] LABS: Albumin 2.8 g/dL (3.2-5.2); Calcium 8.3 mg/dL (8.6-10.3); Globulin 2.8 g/dL (2-4); Potassium 4.4 mmol/L (3.5-5.0); Total Bilirubin 0.3 mg/dL (0.2-1.0); Total Protein 5.6 g/dL (6.4-8.9)
[2021-05-24] MEDS: Multivitamins/Minerals TAB PO SCH (07:50)
[2021-05-24] MEDS: Senna TAB 8.6 mg TAB PO SCH ×2 (07:51→21:21)
[2021-05-24] MEDS: Magic MouthWash1-BEN/MAAL/LIDO 180 ML BTL SWISH SPIT SCH ×3 (07:59→16:51)
[2021-05-24 08:43] LABS: ABS Lymphocytes 0.3 10^3/ul (1.0-4.8); ABS Monocytes 0.3 10^3/ul (0-0.8); ABS Neutrophils 0.3 10^3/ul (1.5-7.7); Eosinophil % 5.1 %; Nucleated Red Blood Cells % 1.5
[2021-05-24] MEDS: Cefepime 2 GM in Dextrose 2 GM/50 ML BAG IV SCH (13:28)
[2021-05-24] MEDS: oxyCODONE SR 10 mg TAB PO SCH (21:21)
[2021-05-25 06:47] LABS: ABS Lymphocytes 0.3 10^3/ul (1.0-4.8); ABS Monocytes 0.4 10^3/ul (0-0.8); ABS Neutrophils 0.6 10^3/ul (1.5-7.7); Eosinophil % 2.9 %; Hematocrit 25 % (35-47); Hemoglobin 8.6 g/dL (12.0-16.0); Lymphocyte % 23.6 %; Mean Corpuscular HGB Conc 35 g/dL (31-36); Mean Corpuscular Hemoglobin 38 pg (27-31); Mean Corpuscular Volume 108 fL (80-97); Mean Platelet Volume 7.6 fL (7.4-10.4); Nucleated Red Blood Cells % 0.6; Platelet Count 117 10^3/uL (150-450); Red Blood Count 2.29 10^6 /uL (3.70-4.87); Red Cell Distribution Width 14 % (10-15); White Blood Count 1.4 10^3/uL (3.5-10.8)
[2021-05-25] MEDS: Multivitamins/Minerals TAB PO SCH (07:39)
[2021-05-25] MEDS: oxyCODONE SR 10 mg TAB PO SCH ×2 (07:40→20:38)
[2021-05-25] MEDS: Senna TAB 8.6 mg TAB PO SCH ×2 (07:40→20:38)
[2021-05-25] MEDS: Magic MouthWash1-BEN/MAAL/LIDO 180 ML BTL SWISH SPIT SCH ×3 (07:41→14:46)
[2021-05-25 08:26] LABS: Polychromasia 1+
[2021-05-25] MEDS: Cefepime 2 GM in Dextrose 2 GM/50 ML BAG IV SCH (14:19)
[2021-05-25] MEDS: Ondansetron 4 mg VIAL 2 MG/ML 2 ml VIAL IV PRN (18:52)
[2021-05-26 09:13] LABS: ABS Eosinophils 0.1 10^3/ul (0-0.6); ABS Lymphocytes 0.3 10^3/ul (1.0-4.8); ABS Monocytes 0.4 10^3/ul (0-0.8); ABS Neutrophils 0.9 10^3/ul (1.5-7.7); Eosinophil % 3.1 %; Hematocrit 30 % (35-47); Hemoglobin 10.3 g/dL (12.0-16.0); Lymphocyte % 20.3 %; Mean Corpuscular HGB Conc 35 g/dL (31-36); Mean Corpuscular Hemoglobin 37 pg (27-31); Mean Corpuscular Volume 108 fL (80-97); Mean Platelet Volume 7.1 fL (7.4-10.4); Nucleated Red Blood Cells % 0.4; Platelet Count 188 10^3/uL (150-450); Red Blood Count 2.76 10^6 /uL (3.70-4.87); Red Cell Distribution Width 15 % (10-15); White Blood Count 1.6 10^3/uL (3.5-10.8)
[2021-05-26] MEDS: Multivitamins/Minerals TAB PO SCH (09:49)
[2021-05-26] MEDS: oxyCODONE SR 10 mg TAB PO SCH (09:49)
[2021-05-26] MEDS: Senna TAB 8.6 mg TAB PO SCH ×2 (09:49→09:53)
[2021-05-26] MEDS: Magic MouthWash1-BEN/MAAL/LIDO 180 ML BTL SWISH SPIT SCH ×2 (09:52→12:49)
[2021-05-26] MEDS: Cefepime 2 GM in Dextrose 2 GM/50 ML BAG IV SCH (13:58)
[2021-05-26 15:40] VITALS: BP 144/67
== END 2021-05-26 15:39 | disposition hospice, home (50) | DRG 809 ==
LOC: ED 22:48 → MEDTELE 05-19 10:11 → SUATTDRO 05-19 10:11 → MEDTELE 05-19 14:55
PROVIDERS: ADMIT Student in an Organized Health Care Education/Training Program; ATTEND Internal Medicine Hematology & Oncology

== ENCOUNTER 2021-06-11 20:03 | Inpatient (IN) ==
[2021-06-11] MEDS ORDERED: NS 0.9% 1000 ml BAG 1,000 ML IV ONE (21:03)
[2021-06-11 22:10] LABS: ABS Basophils 0.1 10^3/ul (0-0.2); ABS Lymphocytes 0.3 10^3/ul (1.0-4.8); ABS Monocytes 0.9 10^3/ul (0-0.8); ABS Neutrophils 7.9 10^3/ul (1.5-7.7); Eosinophil % 0.2 %; Hematocrit 28 % (35-47); Hemoglobin 9.4 g/dL (12.0-16.0); Lymphocyte % 3.3 %; Mean Corpuscular HGB Conc 34 g/dL (31-36); Mean Corpuscular Hemoglobin 38 pg (27-31); Mean Corpuscular Volume 113 fL (80-97); Mean Platelet Volume 7.8 fL (7.4-10.4); Platelet Count 153 10^3/uL (150-450); Red Blood Count 2.49 10^6 /uL (3.70-4.87); Red Cell Distribution Width 18 % (10-15); White Blood Count 9.2 10^3/uL (3.5-10.8)
[2021-06-11 22:25] LABS: ALT 13 U/L (7-52); AST 52 U/L (13-39); Albumin/Globulin Ratio 1.3 (1-3); Alkaline Phosphatase 126 U/L (35-149); Amylase 16 U/L (29-103); Blood Urea Nitrogen 41 mg/dL (6-24); C Reactive Protein 186.07 mg/L (<8.01); CO2 Carbon Dioxide 22 mmol/L (22-32); Calcium 8.4 mg/dL (8.6-10.3); Chloride 104 mmol/L (101-111); Globulin 2.3 g/dL (2-4); Glucose 67 mg/dL (70-100); Lipase < 10 U/L (11.0-82.0); Magnesium 2.3 mg/dL (1.9-2.7); Sodium 135 mmol/L (135-145); Total Protein 5.3 g/dL (6.4-8.9)
[2021-06-11 22:31] LABS: Anion Gap 9 mmol/L (2-11); Potassium 5.1 mmol/L (3.5-5.0)
[2021-06-11 22:33] LABS: Troponin I 0.08 ng/mL (<0.03)
[2021-06-11 22:57] LABS: Rapid COVID-19 Molecular Undetected (Undetected)
[2021-06-12] MEDS ORDERED: Lactated Ringers 1000 ml BAG 1,000 ML IV ONE (00:22)
[2021-06-12] MEDS ORDERED: Dextrose 50% Syringe 50 ml 25 GM/50 ML SYRINGE IV PUSH PRN (00:33)
[2021-06-12] MEDS ORDERED: metroNIDAZOLE IV 500 MG/100ML - ED ONCE IVPB ONE (03:00)
[2021-06-12] MEDS: NS 0.9% 1000 ml BAG 1,000 ML IV SCH (06:32)
[2021-06-12] MEDS: oxyCODONE SR 10 mg TAB PO SCH ×2 (10:05→21:14)
[2021-06-12] MEDS: metroNIDAZOLE IV 500 MG/100ML 500 MG/100 ML BAG IVPB SCH ×2 (12:35→21:15)
[2021-06-12] MEDS ORDERED: Prochlorperazine 5 mg/ml 2 ml VIAL (10 mg) ONE (16:04)
[2021-06-12] MEDS: Prochlorperazine 5 mg/ml 2 ml VIAL (10 mg) IV PRN (16:08)
[2021-06-13] MEDS: metroNIDAZOLE IV 500 MG/100ML 500 MG/100 ML BAG IVPB SCH ×3 (05:22→21:22)
[2021-06-13 05:49] LABS: Hematocrit 23 % (35-47); Hemoglobin 7.8 g/dL (12.0-16.0); Mean Corpuscular HGB Conc 34 g/dL (31-36); Mean Corpuscular Hemoglobin 38 pg (27-31); Mean Corpuscular Volume 113 fL (80-97); Mean Platelet Volume 7.8 fL (7.4-10.4); Platelet Count 107 10^3/uL (150-450); Red Blood Count 2.05 10^6 /uL (3.70-4.87); Red Cell Distribution Width 18 % (10-15); White Blood Count 6.3 10^3/uL (3.5-10.8)
[2021-06-13 06:06] LABS: Calcium 7.9 mg/dL (8.6-10.3); Potassium 3.9 mmol/L (3.5-5.0)
[2021-06-13 06:46] LABS: ABS Eosinophils 0.3 10^3/ul (0-0.6); ABS Lymphocytes 0.3 10^3/ul (1.0-4.8); ABS Monocytes 0.6 10^3/ul (0-0.8); Eosinophil % 4.2 %; Lymphocyte % 5.6 %; Nucleated Red Blood Cells % 0.2
[2021-06-13 06:47] LABS: Anisocytosis 1+; Macrocytosis 2+; Polychromasia 1+
[2021-06-13 06:48] LABS: Basophilic Stippling 1+
[2021-06-13] MEDS: oxyCODONE SR 10 mg TAB PO SCH ×2 (08:50→21:21)
[2021-06-13] MEDS ORDERED: cefTRIAXone VIAL 1,000 MG in NS 0.9% 50 ML 50 ML IVPB SCH (11:00)
[2021-06-13] MEDS: NS 0.9% 1000 ml BAG 1,000 ML IV SCH (21:26)
[2021-06-14] MEDS: metroNIDAZOLE IV 500 MG/100ML 500 MG/100 ML BAG IVPB SCH ×3 (05:41→19:33)
[2021-06-14 06:47] LABS: Magnesium 1.6 mg/dL (1.9-2.7); Potassium 4.1 mmol/L (3.5-5.0); eGFR CKD-EPI 35.6 (>60)
[2021-06-14] MEDS: oxyCODONE SR 10 mg TAB PO SCH ×2 (08:31→21:26)
[2021-06-14] MEDS: Prochlorperazine 5 mg/ml 2 ml VIAL (10 mg) IV PRN (12:33)
[2021-06-14] MEDS: Carbamide Peroxide 6.5% OTIC 15 ML BTL RIGHT EAR SCH ×2 (12:41→21:24)
[2021-06-14] MEDS: NS 0.9% 1000 ml BAG 1,000 ML IV SCH (19:32)
[2021-06-15] MEDS: metroNIDAZOLE IV 500 MG/100ML 500 MG/100 ML BAG IVPB SCH (04:19)
[2021-06-15] MEDS: Prochlorperazine 5 mg/ml 2 ml VIAL (10 mg) IV PRN (05:34)
[2021-06-15 06:32] LABS: Albumin 2.3 g/dL (3.2-5.2); Albumin/Globulin Ratio 1.2 (1-3); Calcium 7.7 mg/dL (8.6-10.3); Potassium 3.8 mmol/L (3.5-5.0); Total Bilirubin 0.3 mg/dL (0.2-1.0); Total Protein 4.3 g/dL (6.4-8.9); eGFR CKD-EPI 47.3 (>60)
[2021-06-15 06:36] LABS: ABS Eosinophils 0.3 10^3/ul (0-0.6); ABS Lymphocytes 0.4 10^3/ul (1.0-4.8); ABS Monocytes 0.6 10^3/ul (0-0.8); Eosinophil % 7.1 %; Hematocrit 26 % (35-47); Hemoglobin 8.6 g/dL (12.0-16.0); Lymphocyte % 9.9 %; Mean Corpuscular HGB Conc 33 g/dL (31-36); Mean Corpuscular Hemoglobin 38 pg (27-31); Mean Corpuscular Volume 113 fL (80-97); Mean Platelet Volume 7.2 fL (7.4-10.4); Nucleated Red Blood Cells % 0.1; Platelet Count 101 10^3/uL (150-450); Red Cell Distribution Width 17 % (10-15); White Blood Count 4.3 10^3/uL (3.5-10.8)
[2021-06-15] MEDS: oxyCODONE SR 10 mg TAB PO SCH ×2 (08:25→20:27)
[2021-06-15] MEDS: NS 0.9% 1000 ml BAG 1,000 ML IV SCH (08:30)
[2021-06-15] MEDS: Carbamide Peroxide 6.5% OTIC 15 ML BTL RIGHT EAR SCH ×2 (12:11→21:06)
[2021-06-16] MEDS: Carbamide Peroxide 6.5% OTIC 15 ML BTL RIGHT EAR SCH ×2 (08:07→20:55)
[2021-06-16] MEDS: oxyCODONE SR 10 mg TAB PO SCH ×2 (08:09→20:55)
[2021-06-16] MEDS: Prochlorperazine 5 mg/ml 2 ml VIAL (10 mg) IV PRN (21:51)
[2021-06-17] MEDS: Carbamide Peroxide 6.5% OTIC 15 ML BTL RIGHT EAR SCH ×2 (08:14→20:30)
[2021-06-17] MEDS: oxyCODONE SR 10 mg TAB PO SCH ×2 (08:14→20:29)
[2021-06-18] MEDS: oxyCODONE SR 10 mg TAB PO SCH ×2 (09:22→21:04)
[2021-06-18] MEDS: Carbamide Peroxide 6.5% OTIC 15 ML BTL RIGHT EAR SCH ×3 (09:23→21:05)
[2021-06-19] MEDS: oxyCODONE SR 10 mg TAB PO SCH ×2 (08:45→20:51)
[2021-06-19] MEDS: Carbamide Peroxide 6.5% OTIC 15 ML BTL RIGHT EAR SCH ×3 (11:02→19:42)
[2021-06-20] MEDS: Carbamide Peroxide 6.5% OTIC 15 ML BTL RIGHT EAR SCH (07:53)
[2021-06-20] MEDS: oxyCODONE SR 10 mg TAB PO SCH (07:53)
[2021-06-20 08:57] VITALS: BP 154/79
== END 2021-06-20 10:55 | disposition hospice, home (50) | DRG 872 ==
LOC: ED 20:03 → SUATTDRO 06-12 02:33 → EDHOLD 06-12 02:33 → MED 06-12 10:34 → MEDTELE 06-13 12:41
PROVIDERS: ADMIT Student in an Organized Health Care Education/Training Program; ATTEND Internal Medicine Hematology & Oncology